=== PATIENT | male | born 1985 | race African-American/Black ===

== ENCOUNTER 2021-08-16 13:13 | Inpatient (IN) | payer OTHER, SELFPAY ==
[2021-08-16] MEDS ORDERED: Lorazepam 2 MG/ML VIAL ONE (13:37)
[2021-08-16] MEDS ORDERED: Acetaminophen 325 MG TAB PO PRN (20:30)
[2021-08-16] MEDS ORDERED: Ondansetron PF 4 MG/2 ML Vial IVP PRN ×2 (20:30→23:48)
[2021-08-16] MEDS ORDERED: Ondansetron ODT 4 MG TAB SL PRN (20:30)
[2021-08-16] MEDS ORDERED: Enoxaparin Sodium 40 MG/0.4 ML SYRINGE SC SCH (23:59)
[2021-08-17] MEDS ORDERED: Enoxaparin Sodium 120 MG/0.8 ML SYRINGE SC SCH (00:30)
[2021-08-17] MEDS: Acetaminophen 325 MG TAB PO PRN ×3 (00:47→20:34)
[2021-08-17] MEDS: Sodium Chloride 0.9% 1,000 ML IV SCH ×4 (00:54→20:35)
[2021-08-17 01:11] LABS: SARS-CoV-2 PCR by NAA Not Detected (NotDetected)
[2021-08-17 06:38] LABS: Legionella Urinary Ag Negative (Negative); Strep pneumo Urine Ag NEGATIVE (NEGATIVE)
[2021-08-17 07:57] LABS: Reticulocyte Count 1.3 % (0.5-1.5)
[2021-08-17 08:05] LABS: Hemoglobin 7.7 g/dL (14.0-18.0); Mean Corpuscular HGB CONC 34.5 g/dL (32.0-36.0); Mean Corpuscular Hemoglobin 31.8 pg (27.0-31.0); Mean Corpuscular Volume 92.1 fL (78.0-98.0); Mean Platelet Volume 7.9 fL (7.4-10.4); Platelet Count 138 thou/uL (130-400); RBC Distribution Width 22.7 % (11.5-14.5); Red Blood Cell (RBC) Count 2.41 mill/uL (4.70-6.10); White Blood Cell (WBC) Count 11.4 thou/uL (4.8-10.8)
[2021-08-17 08:48] LABS: Albumin 3.5 g/dL (3.5-5.0); Calcium 9.3 mg/dL (7.8-10.44); Chloride 104 mmol/L (98-107); Globulin 4.6 g/dL (2.4-3.5); Glucose 86 mg/dL (70-105); Potassium 3.8 mmol/L (3.5-5.1); Protein, Total 8.1 g/dL (6.0-8.3); Sodium 138 mmol/L (136-145)
[2021-08-17 08:59] LABS: Anion Gap 14 mmol/L (10-20); Carbon Dioxide 24 mmol/L (22-29)
[2021-08-17 09:00] LABS: ALT (SGPT) 73 U/L (8-55); AST (SGOT) 66 U/L (5-34); Alkaline Phosphatase 96 U/L (40-110); BUN (Urea Nitrogen) 11 mg/dL (8.9-20.6); Bilirubin, Total 2.7 mg/dL (0.2-1.2); Calc. Creatinine Clearance 223 mL/min (70-130); Iron 31 ug/dL (65-175); Iron Binding Capacity, Total 213 mcg/dL (261-462)
[2021-08-17] MEDS ORDERED: Enoxaparin Sodium 40 MG/0.4 ML SYRINGE SC SCH (09:00)
[2021-08-17 09:12] LABS: Band 4 % (5-11); Eosinophils 3 % (0-10); Hypochromia SLIGHT = 6-15 cells (100X) (0-5/hpf); Lymphocytes 13 % (21-51); MDiff Complete? YES; Monocytes 9 % (0-10); Neutrophil 71 % (42-75); Nucleated RBC 2 % (0); Platelet Morphology Comment Appears Adequate; Polychromasia MODERATE = 3-4 cells (100X) (0-2/hpf); Schistocytes SLIGHT = 2-5 cells (100X) (0-1/hpf); Target Cells MODERATE= 6-15 cells (100X) (0-1/hpf)
[2021-08-17] MEDS: cefTRIAXone\\ROCEPHIN 2 GM in Sodium Chloride 0.9% 100 ML IVPB SCH (11:47)
[2021-08-17] MEDS: Azithromycin 500 MG in Sodium Chloride 0.9% 250 ML 250 ML IVPB SCH (14:02)
[2021-08-17] MEDS: Enoxaparin Sodium 120 MG/0.8 ML SYRINGE SC SCH (14:09)
[2021-08-17] MEDS: Morphine 4 MG/ML VIAL SLOW IVP PRN ×2 (17:24→21:36)
[2021-08-17] MEDS: Gabapentin 100 MG CAP PO SCH (20:34)
[2021-08-18] MEDS: Enoxaparin Sodium 120 MG/0.8 ML SYRINGE SC SCH ×2 (01:16→13:14)
[2021-08-18] MEDS: Morphine 4 MG/ML VIAL SLOW IVP PRN ×4 (01:20→20:18)
[2021-08-18] MEDS: Acetaminophen 325 MG TAB PO PRN ×3 (04:56→22:45)
[2021-08-18] MEDS: Sodium Chloride 0.9% 1,000 ML IV SCH ×4 (05:03→21:46)
[2021-08-18 07:23] LABS: Hemoglobin 6.7 g/dL (14.0-18.0); Mean Corpuscular HGB CONC 32.1 g/dL (32.0-36.0); Mean Corpuscular Hemoglobin 30.2 pg (27.0-31.0); Mean Corpuscular Volume 94.1 fL (78.0-98.0); Mean Platelet Volume 10.7 fL (7.4-10.4); Platelet Count 117 thou/uL (130-400); RBC Distribution Width 19.8 % (11.5-14.5); White Blood Cell (WBC) Count 13.8 thou/uL (4.8-10.8)
[2021-08-18 07:29] LABS: Albumin 3.2 g/dL (3.5-5.0); Alkaline Phosphatase 100 U/L (40-110); Anion Gap 16 mmol/L (10-20); Bilirubin, Total 2.3 mg/dL (0.2-1.2); Calc. Creatinine Clearance 265 mL/min (70-130); Calcium 8.7 mg/dL (7.8-10.44); Carbon Dioxide 19 mmol/L (22-29); Chloride 104 mmol/L (98-107); Globulin 4.1 g/dL (2.4-3.5); Glucose 89 mg/dL (70-105); Potassium 3.6 mmol/L (3.5-5.1); Protein, Total 7.3 g/dL (6.0-8.3); Sodium 135 mmol/L (136-145)
[2021-08-18 07:36] LABS: BUN (Urea Nitrogen) 5 mg/dL (8.9-20.6)
[2021-08-18 07:37] LABS: AST (SGOT) 54 U/L (5-34)
[2021-08-18 07:38] LABS: ALT (SGPT) 52 U/L (8-55)
[2021-08-18] MEDS ORDERED: Enoxaparin Sodium 40 MG/0.4 ML SYRINGE SC SCH (09:00)
[2021-08-18 09:13] LABS: Band 6 % (5-11); Hypochromia SLIGHT = 6-15 cells (100X) (0-5/hpf); Lymphocytes 8 % (21-51); MDiff Complete? YES; Metamyelocyte 5 % (0-0); Monocytes 9 % (0-10); Myelocyte 4 % (0-0); Neutrophil 67 % (42-75); Nucleated RBC 8 % (0); Platelet Morphology Comment Appears Decreased; Polychromasia MODERATE = 3-4 cells (100X) (0-2/hpf); Target Cells MODERATE= 6-15 cells (100X) (0-1/hpf); Tear Drops SLIGHT = 2-5 cells (100X) (0-1/hpf)
[2021-08-18] MEDS: Sodium Chloride 0.65% Nasal 44 ML BOT EA NARE PRN ×2 (09:48→17:54)
[2021-08-18] MEDS: cefTRIAXone\\ROCEPHIN 2 GM in Sodium Chloride 0.9% 100 ML IVPB SCH (09:57)
[2021-08-18] MEDS ORDERED: Fentanyl 100 MCG/2 ML VIAL SLOW IVP SCH (14:15)
[2021-08-18] MEDS: Azithromycin 500 MG in Sodium Chloride 0.9% 250 ML 250 ML IVPB SCH (15:42)
[2021-08-18 18:26] LABS: Hemoglobin 8.3 g/dL (14.0-18.0)
[2021-08-18 19:55] LABS: SARS-CoV-2 IgG Spike Ab Interp Non-Reactive (NonReactive); SARS-CoV-2 IgG Spike Conc/Indx 5.5 AU/mL (0.00-50.0)
[2021-08-18] MEDS: Gabapentin 100 MG CAP PO SCH (20:18)
[2021-08-18] MEDS ORDERED: hydrALAZINE 20 MG/ML VIAL SLOW IVP PRN (22:07)
[2021-08-18] MEDS ORDERED: Metoprolol Tartrate 50 MG TAB PO SCH (22:30)
[2021-08-19] MEDS ORDERED: ALPRAZolam 0.25 MG TAB PO SCH (04:45)
[2021-08-19] MEDS: Sodium Chloride 0.9% 1,000 ML IV SCH ×7 (05:38→23:25)
[2021-08-19 06:36] LABS: Hemoglobin 7.6 g/dL (14.0-18.0); Mean Corpuscular HGB CONC 31.5 g/dL (32.0-36.0); Mean Corpuscular Hemoglobin 29.1 pg (27.0-31.0); Mean Corpuscular Volume 92.4 fL (78.0-98.0); Mean Platelet Volume 10.6 fL (7.4-10.4); Platelet Count 151 thou/uL (130-400); RBC Distribution Width 18.7 % (11.5-14.5)
[2021-08-19 06:53] LABS: Band 8 % (5-11); Eosinophils 1 % (0-10); Lymphocytes 19 % (21-51); MDiff Complete? YES; Monocytes 4 % (0-10); Myelocyte 5 % (0-0); Neutrophil 63 % (42-75); Nucleated RBC 8 % (0); Target Cells MODERATE= 6-15 cells (100X) (0-1/hpf); White Blood Cell (WBC) Count 20.5 thou/uL (4.8-10.8)
[2021-08-19 07:05] LABS: ALT (SGPT) 48 U/L (8-55); AST (SGOT) 63 U/L (5-34); Albumin 3.4 g/dL (3.5-5.0); Alkaline Phosphatase 142 U/L (40-110); Anion Gap 18 mmol/L (10-20); BUN (Urea Nitrogen) 8 mg/dL (8.9-20.6); Bilirubin, Total 1.9 mg/dL (0.2-1.2); Calc. Creatinine Clearance 258 mL/min (70-130); Calcium 9.3 mg/dL (7.8-10.44); Carbon Dioxide 21 mmol/L (22-29); Chloride 102 mmol/L (98-107); Globulin 4.9 g/dL (2.4-3.5); Glucose 93 mg/dL (70-105); Protein, Total 8.3 g/dL (6.0-8.3); Sodium 137 mmol/L (136-145)
[2021-08-19] MEDS: Acetaminophen 325 MG TAB PO PRN ×2 (08:55→23:42)
[2021-08-19] MEDS ORDERED: Furosemide 40 MG/4 ML VIAL ONE (09:14)
[2021-08-19] MEDS ORDERED: Furosemide 100 MG/10 ML VIAL SLOW IVP SCH (09:15)
[2021-08-19 09:51] LABS: Actual Bicarbonate (HCO3a) 21.8 mEq/L (22-28); Base Excess (BEa) -0.8 mEq/L (-2.0 to +3.0); Calcium, Ionized (arterial) 1.11 mmol/L (1.12-1.30); Carboxyhemoglobin (COHb) 0.5 gm% (0.0-3.0); Hemoglobin (Hb) 8.4 g/dL (14.0-18.0); O2 Tension (PaO2), arterial 60.5 mmHg (80.0-100.0); Potassium - ABG Lab 3.78 mmol/L (3.70-5.30); pH, Arterial 7.51 (7.35-7.45)
[2021-08-19] MEDS ORDERED: Metoprolol Tartrate 50 MG TAB PO SCH (11:30)
[2021-08-19] MEDS: cefTRIAXone\\ROCEPHIN 2 GM in Sodium Chloride 0.9% 100 ML IVPB SCH (11:49)
[2021-08-19 14:19] LABS: SARS-CoV-2 PCR by NAA Not Detected (NotDetected)
[2021-08-19] MEDS ORDERED: Azithromycin 500 MG in Sodium Chloride 0.9% 250 ML 250 ML IVPB SCH (15:00)
[2021-08-19] MEDS ORDERED: Morphine 4 MG/ML VIAL SLOW IVP PRN (16:21)
[2021-08-19] MEDS ORDERED: Sodium Chloride 0.9% 1,000 ML IV SCH (16:30)
[2021-08-19 16:50] LABS: Reticulocyte Count 1.2 % (0.5-1.5)
[2021-08-19] MEDS: Morphine 4 MG/ML VIAL SLOW IVP PRN (20:04)
[2021-08-19] MEDS: Gabapentin 100 MG CAP PO SCH (20:05)
[2021-08-19] MEDS: Metoprolol Tartrate 50 MG TAB PO SCH (20:06)
[2021-08-19] MEDS: ALPRAZolam 0.25 MG TAB PO PRN (21:57)
[2021-08-19] MEDS ORDERED: Cyclobenzaprine 10 MG TAB PO SCH (23:59)
[2021-08-20] MEDS: Sodium Chloride 0.9% 1,000 ML IV SCH ×4 (00:01→14:44)
[2021-08-20 03:59] LABS: ALT (SGPT) 37 U/L (8-55); AST (SGOT) 59 U/L (5-34); Albumin 3.3 g/dL (3.5-5.0); Alkaline Phosphatase 155 U/L (40-110); Anion Gap 14 mmol/L (10-20); BUN (Urea Nitrogen) 10 mg/dL (8.9-20.6); Bilirubin, Total 1.9 mg/dL (0.2-1.2); Calc. Creatinine Clearance 251 mL/min (70-130); Calcium 9.2 mg/dL (7.8-10.44); Carbon Dioxide 23 mmol/L (22-29); Chloride 103 mmol/L (98-107); Globulin 4.9 g/dL (2.4-3.5); Glucose 90 mg/dL (70-105); Magnesium 2.3 mg/dL (1.6-2.6); Potassium 3.8 mmol/L (3.5-5.1); Protein, Total 8.2 g/dL (6.0-8.3); Reticulocyte Count 1.2 % (0.5-1.5); Sodium 136 mmol/L (136-145)
[2021-08-20 04:12] LABS: CRP (Inflammatory) 49.83 mg/dL (= or < 0.5)
[2021-08-20 04:42] LABS: Anisocytosis MODERATE=16-30 cells (100X) (0-5/hpf); Band 9 % (5-11); Hemoglobin 7.8 g/dL (14.0-18.0); Lymphocytes 20 % (21-51); MDiff Complete? YES; Mean Corpuscular HGB CONC 33.6 g/dL (32.0-36.0); Mean Corpuscular Hemoglobin 30.5 pg (27.0-31.0); Mean Corpuscular Volume 90.9 fL (78.0-98.0); Monocytes 3 % (0-10); Myelocyte 3 % (0-0); Neutrophil 64 % (42-75); Nucleated RBC 19 % (0); Platelet Count 186 thou/uL (130-400); Reactive Lymphocytes 1 % (0-10); Red Blood Cell (RBC) Count 2.54 mill/uL (4.70-6.10); White Blood Cell (WBC) Count 21.2 thou/uL (4.8-10.8)
[2021-08-20] MEDS: Metoprolol Tartrate 50 MG TAB PO SCH ×2 (08:10→20:10)
[2021-08-20] MEDS: ALPRAZolam 0.25 MG TAB PO PRN (08:10)
[2021-08-20] MEDS: Morphine 4 MG/ML VIAL SLOW IVP PRN (08:10)
[2021-08-20] MEDS: Acetaminophen 325 MG TAB PO PRN ×2 (11:11→22:10)
[2021-08-20] MEDS: cefTRIAXone\\ROCEPHIN 2 GM in Sodium Chloride 0.9% 100 ML IVPB SCH (11:11)
[2021-08-20] MEDS ORDERED: Propofol 1,000 MG/100 ML VIAL IV ONE (12:25)
[2021-08-20] MEDS ORDERED: Midazolam HCl 2 mg/2 ml Vial ONE ×2 (12:25)
[2021-08-20] MEDS ORDERED: Rocuronium Bromide 10 MG/ML (10ML VIAL) ONE (12:26)
[2021-08-20] MEDS ORDERED: Lorazepam 2 MG/ML VIAL ONE (12:59)
[2021-08-20] MEDS ORDERED: Morphine 2 MG/ML VIAL SLOW IVP PRN (13:00)
[2021-08-20] MEDS ORDERED: DISCONTINUE PREVIOUS NARCOTIC PAIN MEDICATIONS AND BENZODIAZEPINES FS SCH (13:00)
[2021-08-20] MEDS ORDERED: Fentanyl BOLUS 250 ML IVPB PRN (13:00)
[2021-08-20] MEDS ORDERED: Propofol BOLUS 1,000 MG/100 ML VIAL IV PRN (13:00)
[2021-08-20] MEDS: Lorazepam 2 MG/ML VIAL SLOW IVP PRN (13:03)
[2021-08-20] MEDS: fentaNYL Citrate/PF 2,000 MCG in Sodium Chloride 0.9% 60 ML IV SCH (13:14)
[2021-08-20] MEDS: Vancomycin 1.5 GRAM/300 ML BAG 1.5 GM in Premix Bag 1 BAG IVPB SCH ×2 (13:19→20:09)
[2021-08-20 13:20] LABS: Actual Bicarbonate (HCO3a) 22.8 mEq/L (22-28); Base Excess (BEa) -1.3 mEq/L (-2.0 to +3.0); CO2 Tension 35.2 mmHg (35.0-45.0); Calcium, Ionized (arterial) 1.08 mmol/L (1.12-1.30); Carboxyhemoglobin (COHb) 0.3 gm% (0.0-3.0); Hemoglobin (Hb) 6.4 g/dL (14.0-18.0); O2 Tension (PaO2), arterial 89.1 mmHg (80.0-100.0); Potassium - ABG Lab 3.96 mmol/L (3.70-5.30); pH, Arterial 7.43 (7.35-7.45)
[2021-08-20] MEDS ORDERED: MEROPENEM 1 GM/50 ML 1 GM in Premix Bag 1 BAG IVPB SCH ×2 (14:00→22:00)
[2021-08-20] MEDS ORDERED: Meropenem 1 GM in Sodium Chloride 0.9% 100 ML IVPB SCH (14:00)
[2021-08-20 14:26] LABS: Puncture Site RRA
[2021-08-20] MEDS: Propofol 1,000 MG/100 ML VIAL IV PRN ×2 (16:01→20:17)
[2021-08-20] MEDS: hydrALAZINE 20 MG/ML VIAL SLOW IVP PRN (19:33)
[2021-08-20] MEDS: Gabapentin 100 MG CAP PO SCH (20:09)
[2021-08-20] MEDS ORDERED: Vancomycin 1 GM in Premix Bag 1 BAG IVPB SCH (21:00)
[2021-08-20] MEDS: Meropenem 1 GM in Sodium Chloride 0.9% 100 ML IVPB SCH (23:00)
[2021-08-21] MEDS: fentaNYL Citrate/PF 2,000 MCG in Sodium Chloride 0.9% 60 ML IV SCH ×2 (02:11→22:01)
[2021-08-21] MEDS: Acetaminophen 325 MG TAB PO PRN ×3 (03:58→20:20)
[2021-08-21] MEDS: Propofol 1,000 MG/100 ML VIAL IV PRN ×4 (03:59→20:15)
[2021-08-21] MEDS ORDERED: Ibuprofen 100 MG/5 ML UDCUP PER TUBE SCH (04:00)
[2021-08-21] MEDS: Vancomycin 1.5 GRAM/300 ML BAG 1.5 GM in Premix Bag 1 BAG IVPB SCH ×2 (04:54→13:13)
[2021-08-21 05:05] LABS: Anion Gap 13 mmol/L (10-20); BUN (Urea Nitrogen) 21 mg/dL (8.9-20.6); Calc. Creatinine Clearance 184 mL/min (70-130); Calcium 8.5 mg/dL (7.8-10.44); Carbon Dioxide 22 mmol/L (22-29); Chloride 109 mmol/L (98-107); Glucose 81 mg/dL (70-105); Potassium 4.2 mmol/L (3.5-5.1); Sodium 140 mmol/L (136-145)
[2021-08-21 05:30] LABS: Anisocytosis MODERATE=16-30 cells (100X) (0-5/hpf); Band 10 % (5-11); Eosinophils 1 % (0-10); Hemoglobin 7.8 g/dL (14.0-18.0); Large Platelets SLIGHT; Lymphocytes 21 % (21-51); MDiff Complete? YES; Mean Corpuscular HGB CONC 32.7 g/dL (32.0-36.0); Mean Corpuscular Hemoglobin 28.9 pg (27.0-31.0); Mean Corpuscular Volume 88.3 fL (78.0-98.0); Mean Platelet Volume 12.2 fL (7.4-10.4); Metamyelocyte 3 % (0-0); Microcytosis SLIGHT = 6-15 cells (100X) (0-5/hpf); Monocytes 3 % (0-10); Myelocyte 10 % (0-0); Neutrophil 52 % (42-75); Nucleated RBC 39 % (0); Platelet Count 66 thou/uL (130-400); Platelet Morphology Comment Appears Decreased; Polychromasia SLIGHT = 2-3 cells (100X) (0-2/hpf); RBC Distribution Width 18.8 % (11.5-14.5); Schistocytes SLIGHT = 2-5 cells (100X) (0-1/hpf); Target Cells SLIGHT = 2-5 cells (100X) (0-1/hpf); Toxic Granulation SLIGHT; White Blood Cell (WBC) Count 19.2 thou/uL (4.8-10.8)
[2021-08-21] MEDS: Sodium Chloride 0.9% 1,000 ML IV SCH ×4 (05:44→19:15)
[2021-08-21] MEDS: Meropenem 1 GM in Sodium Chloride 0.9% 100 ML IVPB SCH ×3 (06:44→22:02)
[2021-08-21 07:53] LABS: Base Excess (BEa) -1.7 mEq/L (-2.0 to +3.0); CO2 Tension 39.3 mmHg (35.0-45.0); Calcium, Ionized (arterial) 1.11 mmol/L (1.12-1.30); O2 Tension (PaO2), arterial 95.5 mmHg (80.0-100.0); Potassium - ABG Lab 4.31 mmol/L (3.70-5.30); pH, Arterial 7.39 (7.35-7.45)
[2021-08-21 08:23] LABS: Puncture Site RRA
[2021-08-21 08:24] LABS: ALV-art Gradient 140.575 mmHg (0-20)
[2021-08-21] MEDS: Metoprolol Tartrate 50 MG TAB PO SCH ×2 (09:18→20:20)
[2021-08-21] MEDS: Famotidine/PF 20 mg/2ml Vial SLOW IVP SCH (09:18)
[2021-08-21 11:40] LABS: Vancomycin, Trough 30.6 ug/mL
[2021-08-21 12:35] LABS: Hemoglobin 7.5 g/dL (14.0-18.0); Mean Corpuscular HGB CONC 34.5 g/dL (32.0-36.0); Mean Corpuscular Hemoglobin 30.3 pg (27.0-31.0); Mean Platelet Volume 14.1 fL (7.4-10.4); Platelet Count 62 thou/uL (130-400); RBC Distribution Width 19.1 % (11.5-14.5); Red Blood Cell (RBC) Count 2.46 mill/uL (4.70-6.10)
[2021-08-21 13:17] LABS: Anisocytosis SLIGHT = 6-15 cells (100X) (0-5/hpf); Band 2 % (5-11); Eosinophils 1 % (0-10); Lymphocytes 12 % (21-51); MDiff Complete? YES; Metamyelocyte 5 % (0-0); Monocytes 7 % (0-10); Myelocyte 8 % (0-0); Neutrophil 62 % (42-75); Nucleated RBC 46 % (0); Platelet Morphology Comment Appears Decreased; Polychromasia SLIGHT = 2-3 cells (100X) (0-2/hpf); Reactive Lymphocytes 3 % (0-10); Target Cells SLIGHT = 2-5 cells (100X) (0-1/hpf); Toxic Granulation SLIGHT
[2021-08-21 13:19] LABS: White Blood Cell (WBC) Count 19.5 thou/uL (4.8-10.8)
[2021-08-21] MEDS: Gabapentin 100 MG CAP PO SCH (20:20)
[2021-08-21 23:36] LABS: Vancomycin, Random 9.7 ug/mL (See Comment)
[2021-08-22] MEDS: Acetaminophen 325 MG TAB PO PRN ×4 (00:25→16:45)
[2021-08-22] MEDS ORDERED: Vancomycin HCl 1.5 GM in Sodium Chloride 0.9% 250 ML 300 ML IVPB SCH (00:45)
[2021-08-22] MEDS ORDERED: Vancomycin 1.5 GRAM/300 ML BAG 1.5 GM in Premix Bag 1 BAG IVPB SCH (01:00)
[2021-08-22] MEDS: Sodium Chloride 0.9% 1,000 ML IV SCH ×4 (03:01→20:36)
[2021-08-22] MEDS: Propofol 1,000 MG/100 ML VIAL IV PRN ×7 (03:50→23:17)
[2021-08-22 04:27] LABS: Reticulocyte Count 1.4 % (0.5-1.5)
[2021-08-22 04:30] LABS: ALT (SGPT) 1627 U/L (8-55); Albumin 2.6 g/dL (3.5-5.0); Alkaline Phosphatase 176 U/L (40-110); Anion Gap 13 mmol/L (10-20); BUN (Urea Nitrogen) 27 mg/dL (8.9-20.6); Bilirubin, Total 4.1 mg/dL (0.2-1.2); Calc. Creatinine Clearance 173 mL/min (70-130); Calcium 8.1 mg/dL (7.8-10.44); Carbon Dioxide 22 mmol/L (22-29); Chloride 112 mmol/L (98-107); Globulin 4.1 g/dL (2.4-3.5); Glucose 97 mg/dL (70-105); Potassium 4.4 mmol/L (3.5-5.1); Protein, Total 6.7 g/dL (6.0-8.3); Sodium 143 mmol/L (136-145)
[2021-08-22 04:31] LABS: ALT (SGPT) 1621 U/L (8-55); Albumin 2.6 g/dL (3.5-5.0); Alkaline Phosphatase 177 U/L (40-110); Bilirubin, Total 4.1 mg/dL (0.2-1.2); Protein, Total 6.7 g/dL (6.0-8.3)
[2021-08-22 04:40] LABS: AST (SGOT) Greater than 3500 U/L (5-34)
[2021-08-22 04:41] LABS: AST (SGOT) Greater than 3500 U/L (5-34)
[2021-08-22] MEDS: Meropenem 1 GM in Sodium Chloride 0.9% 100 ML IVPB SCH ×3 (05:13→21:03)
[2021-08-22 06:01] LABS: Anisocytosis SLIGHT = 6-15 cells (100X) (0-5/hpf); Band 12 % (5-11); Basophilic Stippling SLIGHT = 1-2 cells (100X) (None Seen); Eosinophils 3 % (0-10); Hemoglobin 7.4 g/dL (14.0-18.0); Lymphocytes 18 % (21-51); MDiff Complete? YES; Mean Corpuscular HGB CONC 31.4 g/dL (32.0-36.0); Mean Corpuscular Volume 89.1 fL (78.0-98.0); Mean Platelet Volume 8.3 fL (7.4-10.4); Monocytes 3 % (0-10); Myelocyte 5 % (0-0); Neutrophil 59 % (42-75); Nucleated RBC 29 % (0); Platelet Count 89 thou/uL (130-400); Platelet Morphology Comment Appears Decreased; Polychromasia SLIGHT = 2-3 cells (100X) (0-2/hpf); RBC Distribution Width 19.6 % (11.5-14.5); Red Blood Cell (RBC) Count 2.64 mill/uL (4.70-6.10); Target Cells SLIGHT = 2-5 cells (100X) (0-1/hpf); White Blood Cell (WBC) Count 27.6 thou/uL (4.8-10.8)
[2021-08-22 07:22] LABS: Actual Bicarbonate (HCO3a) 22.7 mEq/L (22-28); Base Excess (BEa) -1.5 mEq/L (-2.0 to +3.0); CO2 Tension 36.1 mmHg (35.0-45.0); Calcium, Ionized (arterial) 1.11 mmol/L (1.12-1.30); Hemoglobin (Hb) 8.5 g/dL (14.0-18.0); O2 Tension (PaO2), arterial 73.6 mmHg (80.0-100.0); Potassium - ABG Lab 4.26 mmol/L (3.70-5.30); pH, Arterial 7.42 (7.35-7.45)
[2021-08-22 07:23] LABS: ALV-art Gradient 166.475 mmHg (0-20); Puncture Site RR
[2021-08-22] MEDS: hydrALAZINE 20 MG/ML VIAL SLOW IVP PRN (07:48)
[2021-08-22] MEDS: Lorazepam 2 MG/ML VIAL SLOW IVP PRN ×3 (08:22→20:34)
[2021-08-22] MEDS: Labetalol HCl 100 MG/20 ML VIAL SLOW IVP PRN ×2 (08:23→16:45)
[2021-08-22] MEDS: Famotidine/PF 20 mg/2ml Vial SLOW IVP SCH (08:35)
[2021-08-22] MEDS: Metoprolol Tartrate 50 MG TAB PO SCH ×2 (08:35→20:24)
[2021-08-22] MEDS: Vancomycin 1.5 GRAM/300 ML BAG 1.5 GM in Premix Bag 1 BAG IVPB SCH (14:47)
[2021-08-22] MEDS: fentaNYL Citrate/PF 2,000 MCG in Sodium Chloride 0.9% 60 ML IV SCH (16:09)
[2021-08-22] MEDS: Vecuronium 10 MG VIAL IVP PRN (17:51)
[2021-08-22] MEDS: Gabapentin 100 MG CAP PO SCH (20:23)
[2021-08-23] MEDS: Lorazepam 2 MG/ML VIAL SLOW IVP PRN ×2 (00:41→00:45)
[2021-08-23] MEDS: Labetalol HCl 100 MG/20 ML VIAL SLOW IVP PRN (00:45)
[2021-08-23] MEDS: Vancomycin 1.5 GRAM/300 ML BAG 1.5 GM in Premix Bag 1 BAG IVPB SCH ×2 (00:45→14:38)
[2021-08-23] MEDS: Sodium Chloride 0.9% 1,000 ML IV SCH ×3 (02:11→20:36)
[2021-08-23] MEDS: fentaNYL Citrate/PF 2,000 MCG in Sodium Chloride 0.9% 60 ML IV SCH ×2 (02:11→12:08)
[2021-08-23] MEDS: Propofol 1,000 MG/100 ML VIAL IV PRN ×7 (02:13→23:07)
[2021-08-23 04:56] LABS: Ref Lab Test Ordered ADAMTS13 AB; Reference Lab Name LABCORP
[2021-08-23 05:19] LABS: Complement-C4 5.6 mg/dL (15-53)
[2021-08-23 05:20] LABS: ALT (SGPT) 1108 U/L (8-55); ALT (SGPT) 1125 U/L (8-55); AST (SGOT) 1962 U/L (5-34); AST (SGOT) 1992 U/L (5-34); Albumin 2.3 g/dL (3.5-5.0); Albumin 2.4 g/dL (3.5-5.0); Alkaline Phosphatase 173 U/L (40-110); Alkaline Phosphatase 175 U/L (40-110); Anion Gap 10 mmol/L (10-20); BUN (Urea Nitrogen) 24 mg/dL (8.9-20.6); Bilirubin, Direct 3.7 mg/dL (0.1-0.3); Bilirubin, Total 5.1 mg/dL (0.2-1.2); Calc. Creatinine Clearance 216 mL/min (70-130); Calcium 8.3 mg/dL (7.8-10.44); Carbon Dioxide 25 mmol/L (22-29); Chloride 116 mmol/L (98-107); Globulin 4.3 g/dL (2.4-3.5); Glucose 97 mg/dL (70-105); Potassium 4.2 mmol/L (3.5-5.1); Protein, Total 6.6 g/dL (6.0-8.3); Protein, Total 6.7 g/dL (6.0-8.3); Sodium 147 mmol/L (136-145)
[2021-08-23 05:35] LABS: Anisocytosis MODERATE=16-30 cells (100X) (0-5/hpf); Band 18 % (5-11); Eosinophils 2 % (0-10); Hemoglobin 6.6 g/dL (14.0-18.0); Large Platelets SLIGHT; Lymphocytes 11 % (21-51); MDiff Complete? YES; Mean Corpuscular HGB CONC 30.3 g/dL (32.0-36.0); Mean Corpuscular Hemoglobin 26.8 pg (27.0-31.0); Mean Corpuscular Volume 88.4 fL (78.0-98.0); Mean Platelet Volume 10.4 fL (7.4-10.4); Metamyelocyte 5 % (0-0); Monocytes 1 % (0-10); Myelocyte 12 % (0-0); Neutrophil 51 % (42-75); Nucleated RBC 64 % (0); Platelet Count 81 thou/uL (130-400); Platelet Morphology Comment Appears Decreased; Polychromasia SLIGHT = 2-3 cells (100X) (0-2/hpf); RBC Distribution Width 21.2 % (11.5-14.5); Red Blood Cell (RBC) Count 2.47 mill/uL (4.70-6.10); Schistocytes SLIGHT = 2-5 cells (100X) (0-1/hpf); Target Cells SLIGHT = 2-5 cells (100X) (0-1/hpf)
[2021-08-23 05:40] LABS: HBCM Index 0.08 S/CO (0-0.79); HBSAg Index 0.22 S/CO (0-0.99); Hep A IgM AB Non-Reactive (NonReactive); Hep A IgM S/CO 0.09 S/CO (0-0.79); Hep B Surf Ag Non-Reactive S/CO (NonReactive); Hep C IgG Ab Non-Reactive (NonReactive); Hep C Index 0.17 S/CO (0-0.79); Hepatitis B Core IgM Abs Non-Reactive (NonReactive)
[2021-08-23] MEDS: Meropenem 1 GM in Sodium Chloride 0.9% 100 ML IVPB SCH ×3 (06:00→21:53)
[2021-08-23 07:06] LABS: Actual Bicarbonate (HCO3a) 23.7 mEq/L (22-28); Base Excess (BEa) -1.7 mEq/L (-2.0 to +3.0); CO2 Tension 43.3 mmHg (35.0-45.0); Calcium, Ionized (arterial) 1.17 mmol/L (1.12-1.30); Carboxyhemoglobin (COHb) 3.4 gm% (0.0-3.0); Hemoglobin (Hb) 8.1 g/dL (14.0-18.0); Potassium - ABG Lab 4.22 mmol/L (3.70-5.30); pH, Arterial 7.36 (7.35-7.45)
[2021-08-23 07:10] LABS: ALV-art Gradient 173.075 mmHg (0-20); Puncture Site RRA
[2021-08-23] MEDS ORDERED: Ibuprofen 600 MG TAB PO PRN (08:50)
[2021-08-23] MEDS: Metoprolol Tartrate 50 MG TAB PO SCH ×2 (09:21→20:07)
[2021-08-23] MEDS: Famotidine/PF 20 mg/2ml Vial SLOW IVP SCH ×2 (09:21→20:07)
[2021-08-23 10:18] LABS: INR-International Normal Ratio 1.3; Prothrombin Time 15.9 sec (12.0-14.7)
[2021-08-23] MEDS: Vecuronium 10 MG VIAL IVP PRN (10:45)
[2021-08-23 12:35] LABS: Vancomycin, Trough 11.4 ug/mL
[2021-08-23 12:46] LABS: BF Color Pink; Body Fluid Source Bronchioalveol Lavag; Clarity Hazy (Clear); Tube # EDTA
[2021-08-23 12:47] LABS: BF RBC Count - Manual 1073 /cu.mm; BF WBC/Nonhematics Ct.-Manual 1643 /cu.mm
[2021-08-23 12:50] LABS: BF Segmented Neutrophils 76 %; Cell Count Non Hematic 19 %; Eosinophils 2 %; Lymphocytes 3 %
[2021-08-23] MEDS: VANCOMYCIN 1.75 GM/350 ML BAG 1.75 GM in Premix Bag 1 BAG IVPB SCH (14:00)
[2021-08-23 15:13] LABS: Hemoglobin F 5.1 % (0.0-2.0); Hemoglobin S 57.5 % (0.0)
[2021-08-23] MEDS: Gabapentin 100 MG CAP PO SCH (20:07)
[2021-08-24] MEDS: fentaNYL Citrate/PF 2,000 MCG in Sodium Chloride 0.9% 60 ML IV SCH ×2 (00:05→17:41)
[2021-08-24] MEDS: VANCOMYCIN 1.75 GM/350 ML BAG 1.75 GM in Premix Bag 1 BAG IVPB SCH ×2 (02:15→15:39)
[2021-08-24] MEDS: Propofol 1,000 MG/100 ML VIAL IV PRN ×5 (02:17→21:23)
[2021-08-24] MEDS: hydrALAZINE 20 MG/ML VIAL SLOW IVP PRN (03:08)
[2021-08-24] MEDS: Labetalol HCl 100 MG/20 ML VIAL SLOW IVP PRN (03:42)
[2021-08-24] MEDS: Sodium Chloride 0.9% 1,000 ML IV SCH (04:06)
[2021-08-24 04:47] LABS: Reticulocyte Count 4.6 % (0.5-1.5)
[2021-08-24 04:52] LABS: ALT (SGPT) 708 U/L (8-55); AST (SGOT) 920 U/L (5-34); Albumin 2.3 g/dL (3.5-5.0); Alkaline Phosphatase 169 U/L (40-110); Bilirubin, Direct 3.4 mg/dL (0.1-0.3); Bilirubin, Total 4.7 mg/dL (0.2-1.2); Protein, Total 6.8 g/dL (6.0-8.3)
[2021-08-24 04:56] LABS: ALT (SGPT) 713 U/L (8-55); AST (SGOT) 923 U/L (5-34); Albumin 2.3 g/dL (3.5-5.0); Alkaline Phosphatase 168 U/L (40-110); Anion Gap 13 mmol/L (10-20); BUN (Urea Nitrogen) 18 mg/dL (8.9-20.6); Bilirubin, Total 4.7 mg/dL (0.2-1.2); Calc. Creatinine Clearance 232 mL/min (70-130); Calcium 8.7 mg/dL (7.8-10.44); Carbon Dioxide 24 mmol/L (22-29); Chloride 119 mmol/L (98-107); Globulin 4.5 g/dL (2.4-3.5); Glucose 96 mg/dL (70-105); Potassium 4.5 mmol/L (3.5-5.1); Protein, Total 6.8 g/dL (6.0-8.3); Sodium 151 mmol/L (136-145)
[2021-08-24 05:21] LABS: HIV (1/2) Antibody/Antigen Non-Reactive (NonReactive); HIV 1/2 INDEX 0.16 S/CO (<1.00)
[2021-08-24] MEDS: Meropenem 1 GM in Sodium Chloride 0.9% 100 ML IVPB SCH ×3 (05:58→21:21)
[2021-08-24 06:03] LABS: Ferritin 26163.38 ng/mL (22-322)
[2021-08-24 06:14] LABS: Hemoglobin 7.4 g/dL (14.0-18.0); Mean Corpuscular HGB CONC 32.5 g/dL (32.0-36.0); Mean Corpuscular Hemoglobin 28.6 pg (27.0-31.0); Mean Corpuscular Volume 88.2 fL (78.0-98.0); Mean Platelet Volume 9.4 fL (7.4-10.4); Platelet Count 110 thou/uL (130-400); Red Blood Cell (RBC) Count 2.58 mill/uL (4.70-6.10)
[2021-08-24 07:13] LABS: White Blood Cell (WBC) Count 17.7 thou/uL (4.8-10.8)
[2021-08-24 07:56] LABS: Actual Bicarbonate (HCO3a) 24.8 mEq/L (22-28); Base Excess (BEa) 0.2 mEq/L (-2.0 to +3.0); CO2 Tension 39.5 mmHg (35.0-45.0); Carboxyhemoglobin (COHb) 2.9 gm% (0.0-3.0); Hemoglobin (Hb) 7.7 g/dL (14.0-18.0); Potassium - ABG Lab 4.41 mmol/L (3.70-5.30); pH, Arterial 7.42 (7.35-7.45)
[2021-08-24 07:57] LABS: ALV-art Gradient 238.125 mmHg (0-20); Puncture Site RRA
[2021-08-24] MEDS: Famotidine/PF 20 mg/2ml Vial SLOW IVP SCH ×2 (08:28→21:20)
[2021-08-24] MEDS: Metoprolol Tartrate 50 MG TAB PO SCH ×2 (08:29→21:20)
[2021-08-24 10:43] LABS: Reference Lab Name LABCORP
[2021-08-24 10:44] LABS: Ref Lab Test Ordered NK ACTIVITY
[2021-08-24 13:28] LABS: Anisocytosis MODERATE=16-30 cells (100X) (0-5/hpf); Band 15 % (5-11); Eosinophils 7 % (0-10); Large Platelets SLIGHT; Lymphocytes 7 % (21-51); Metamyelocyte 4 % (0-0); Monocytes 5 % (0-10); Myelocyte 5 % (0-0); Neutrophil 57 % (42-75); Nucleated RBC 181 % (0); Ovalocytes SLIGHT = 2-5 cells (100X) (0-1/hpf); Platelet Morphology Comment Appears Decreased; Poikilocytosis SLIGHT = 6-15 cells (100X) (0-5/hpf); Polychromasia MODERATE = 3-4 cells (100X) (0-2/hpf); Schistocytes SLIGHT = 2-5 cells (100X) (0-1/hpf); Spherocytes SLIGHT = 1-5 cells (100X) (None Seen); Target Cells SLIGHT = 2-5 cells (100X) (0-1/hpf)
[2021-08-24 13:30] LABS: MDiff Complete? YES
[2021-08-24 17:31] LABS: SARS-CoV-2 PCR by NAA Not Detected (NotDetected)
[2021-08-24] MEDS: Gabapentin 100 MG CAP PO SCH (21:20)
[2021-08-25] MEDS: VANCOMYCIN 1.75 GM/350 ML BAG 1.75 GM in Premix Bag 1 BAG IVPB SCH ×2 (01:59→14:12)
[2021-08-25] MEDS: Propofol 1,000 MG/100 ML VIAL IV PRN ×5 (02:02→22:06)
[2021-08-25 04:34] LABS: ALT (SGPT) 427 U/L (8-55); AST (SGOT) 422 U/L (5-34); Albumin 2.2 g/dL (3.5-5.0); Alkaline Phosphatase 150 U/L (40-110); Anion Gap 15 mmol/L (10-20); BUN (Urea Nitrogen) 20 mg/dL (8.9-20.6); Bilirubin, Total 3.8 mg/dL (0.2-1.2); Calc. Creatinine Clearance 235 mL/min (70-130); Calcium 8.9 mg/dL (7.8-10.44); Carbon Dioxide 23 mmol/L (22-29); Chloride 117 mmol/L (98-107); Globulin 4.5 g/dL (2.4-3.5); Glucose 102 mg/dL (70-105); Potassium 4.3 mmol/L (3.5-5.1); Protein, Total 6.7 g/dL (6.0-8.3); Sodium 151 mmol/L (136-145)
[2021-08-25 04:38] LABS: Band 18 % (5-11); Eosinophils 1 % (0-10); Hypochromia SLIGHT = 6-15 cells (100X) (0-5/hpf); Lymphocytes 14 % (21-51); MDiff Complete? YES; Mean Corpuscular HGB CONC 33.9 g/dL (32.0-36.0); Mean Corpuscular Hemoglobin 30.4 pg (27.0-31.0); Mean Corpuscular Volume 89.5 fL (78.0-98.0); Metamyelocyte 1 % (0-0); Monocytes 16 % (0-10); Neutrophil 45 % (42-75); Nucleated RBC 149 % (0); Platelet Count 118 thou/uL (130-400); Platelet Morphology Comment Appears Decreased; Polychromasia SLIGHT = 2-3 cells (100X) (0-2/hpf); RBC Distribution Width 24.5 % (11.5-14.5); Red Blood Cell (RBC) Count 2.32 mill/uL (4.70-6.10); Target Cells SLIGHT = 2-5 cells (100X) (0-1/hpf); White Blood Cell (WBC) Count 11.7 thou/uL (4.8-10.8)
[2021-08-25] MEDS: Meropenem 1 GM in Sodium Chloride 0.9% 100 ML IVPB SCH ×3 (05:57→21:28)
[2021-08-25] MEDS: fentaNYL Citrate/PF 2,000 MCG in Sodium Chloride 0.9% 60 ML IV SCH (05:58)
[2021-08-25 07:25] LABS: Actual Bicarbonate (HCO3a) 26.6 mEq/L (22-28); Base Excess (BEa) 1.5 mEq/L (-2.0 to +3.0); CO2 Tension 44.4 mmHg (35.0-45.0); Calcium, Ionized (arterial) 1.22 mmol/L (1.12-1.30); Carboxyhemoglobin (COHb) 3.3 gm% (0.0-3.0); O2 Tension (PaO2), arterial 81.3 mmHg (80.0-100.0); Potassium - ABG Lab 4.33 mmol/L (3.70-5.30)
[2021-08-25 07:29] LABS: Puncture Site LRA
[2021-08-25] MEDS ORDERED: Dextrose 5% in Water 1,000 ML IV SCH (08:00)
[2021-08-25] MEDS: Metoprolol Tartrate 50 MG TAB PO SCH ×2 (09:06→21:46)
[2021-08-25] MEDS: Enoxaparin Sodium 40 MG/0.4 ML SYRINGE SC SCH (09:06)
[2021-08-25] MEDS: Famotidine/PF 20 mg/2ml Vial SLOW IVP SCH ×2 (09:07→21:39)
[2021-08-25] MEDS: methylPREDNISolone Sod Succ 40 MG VIAL IVP SCH ×2 (14:13→18:51)
[2021-08-25] MEDS: Lorazepam 2 MG/ML VIAL SLOW IVP PRN (14:38)
[2021-08-25] MEDS: Labetalol HCl 100 MG/20 ML VIAL SLOW IVP PRN (21:20)
[2021-08-25] MEDS: Gabapentin 100 MG CAP PO SCH (21:40)
[2021-08-26] MEDS: methylPREDNISolone Sod Succ 40 MG VIAL IVP SCH ×4 (00:15→21:01)
[2021-08-26] MEDS: Propofol 1,000 MG/100 ML VIAL IV PRN ×4 (00:16→08:22)
[2021-08-26] MEDS: VANCOMYCIN 1.75 GM/350 ML BAG 1.75 GM in Premix Bag 1 BAG IVPB SCH (01:20)
[2021-08-26] MEDS: Morphine 4 MG/ML VIAL SLOW IVP PRN (04:20)
[2021-08-26 04:52] LABS: ALT (SGPT) 326 U/L (8-55); AST (SGOT) 271 U/L (5-34); Albumin 2.6 g/dL (3.5-5.0); Alkaline Phosphatase 152 U/L (40-110); Anion Gap 14 mmol/L (10-20); BUN (Urea Nitrogen) 21 mg/dL (8.9-20.6); Bilirubin, Total 3.2 mg/dL (0.2-1.2); Calc. Creatinine Clearance 226 mL/min (70-130); Calcium 9.2 mg/dL (7.8-10.44); Carbon Dioxide 25 mmol/L (22-29); Chloride 115 mmol/L (98-107); Globulin 5.2 g/dL (2.4-3.5); Glucose 143 mg/dL (70-105); Potassium 4.8 mmol/L (3.5-5.1); Protein, Total 7.8 g/dL (6.0-8.3); Sodium 149 mmol/L (136-145)
[2021-08-26] MEDS: fentaNYL Citrate/PF 2,000 MCG in Sodium Chloride 0.9% 60 ML IV SCH (05:00)
[2021-08-26] MEDS: Meropenem 1 GM in Sodium Chloride 0.9% 100 ML IVPB SCH ×3 (05:02→21:02)
[2021-08-26 05:47] LABS: Anisocytosis MARKED = >30 cells (100X) (0-5/hpf); Band 17 % (5-11); Eosinophils 1 % (0-10); Lymphocytes 4 % (21-51); MDiff Complete? YES; Mean Corpuscular HGB CONC 32.9 g/dL (32.0-36.0); Mean Corpuscular Hemoglobin 29.1 pg (27.0-31.0); Mean Corpuscular Volume 88.5 fL (78.0-98.0); Mean Platelet Volume 9.1 fL (7.4-10.4); Monocytes 1 % (0-10); Myelocyte 9 % (0-0); Neutrophil 68 % (42-75); Nucleated RBC 200 % (0); Platelet Count 84 thou/uL (130-400); Platelet Morphology Comment Appears Decreased; Polychromasia MODERATE = 3-4 cells (100X) (0-2/hpf); RBC Distribution Width 24.8 % (11.5-14.5); Red Blood Cell (RBC) Count 3.09 mill/uL (4.70-6.10); Target Cells SLIGHT = 2-5 cells (100X) (0-1/hpf); White Blood Cell (WBC) Count 7.7 thou/uL (4.8-10.8)
[2021-08-26 07:33] LABS: Base Excess (BEa) 1.8 mEq/L (-2.0 to +3.0); CO2 Tension 45.6 mmHg (35.0-45.0); Carboxyhemoglobin (COHb) 1.3 gm% (0.0-3.0); Hemoglobin (Hb) 9.2 g/dL (14.0-18.0); O2 Tension (PaO2), arterial 86.4 mmHg (80.0-100.0); pH, Arterial 7.39 (7.35-7.45)
[2021-08-26 07:34] LABS: Puncture Site LRA
[2021-08-26] MEDS: Metoprolol Tartrate 50 MG TAB PO SCH ×2 (08:22→21:03)
[2021-08-26] MEDS: Famotidine/PF 20 mg/2ml Vial SLOW IVP SCH ×2 (08:22→21:02)
[2021-08-26] MEDS: Enoxaparin Sodium 40 MG/0.4 ML SYRINGE SC SCH (08:22)
[2021-08-26] MEDS: Labetalol HCl 100 MG/20 ML VIAL SLOW IVP PRN (11:38)
[2021-08-26 13:57] LABS: Reference Lab Name KARIUS
[2021-08-26] MEDS ORDERED: Metoprolol Tartrate 50 MG TAB PO SCH (14:00)
[2021-08-26] MEDS: Gabapentin 100 MG CAP PO SCH (21:03)
[2021-08-26] MEDS: Lorazepam 2 MG/ML VIAL SLOW IVP PRN (21:13)
[2021-08-27] MEDS: methylPREDNISolone Sod Succ 40 MG VIAL IVP SCH ×4 (00:58→20:49)
[2021-08-27] MEDS: fentaNYL Citrate/PF 2,000 MCG in Sodium Chloride 0.9% 60 ML IV SCH (02:30)
[2021-08-27] MEDS: Morphine 4 MG/ML VIAL SLOW IVP PRN (02:51)
[2021-08-27] MEDS: Lorazepam 2 MG/ML VIAL SLOW IVP PRN (02:51)
[2021-08-27 04:18] LABS: Anion Gap 13 mmol/L (10-20); BUN (Urea Nitrogen) 29 mg/dL (8.9-20.6); Calc. Creatinine Clearance 251 mL/min (70-130); Calcium 9.2 mg/dL (7.8-10.44); Carbon Dioxide 26 mmol/L (22-29); Chloride 117 mmol/L (98-107); Glucose 131 mg/dL (70-105); Potassium 4.8 mmol/L (3.5-5.1); Sodium 151 mmol/L (136-145)
[2021-08-27 04:45] LABS: Band 5 % (5-11); Hemoglobin 9.8 g/dL (14.0-18.0); Hypochromia SLIGHT = 6-15 cells (100X) (0-5/hpf); Lymphocytes 20 % (21-51); MDiff Complete? YES; Mean Corpuscular HGB CONC 30.6 g/dL (32.0-36.0); Mean Corpuscular Volume 91.5 fL (78.0-98.0); Mean Platelet Volume 12.6 fL (7.4-10.4); Monocytes 15 % (0-10); Neutrophil 60 % (42-75); Nucleated RBC 197 % (0); Platelet Count 172 thou/uL (130-400); Platelet Morphology Comment Appears Adequate; Polychromasia SLIGHT = 2-3 cells (100X) (0-2/hpf); RBC Distribution Width 22.1 % (11.5-14.5); Red Blood Cell (RBC) Count 3.49 mill/uL (4.70-6.10); Target Cells SLIGHT = 2-5 cells (100X) (0-1/hpf); White Blood Cell (WBC) Count 5.2 thou/uL (4.8-10.8)
[2021-08-27] MEDS: Meropenem 1 GM in Sodium Chloride 0.9% 100 ML IVPB SCH (05:33)
[2021-08-27 06:59] LABS: Actual Bicarbonate (HCO3a) 28.6 mEq/L (22-28); Base Excess (BEa) 2.5 mEq/L (-2.0 to +3.0); CO2 Tension 50.9 mmHg (35.0-45.0); Calcium, Ionized (arterial) 1.23 mmol/L (1.12-1.30); Hemoglobin (Hb) 10.9 g/dL (14.0-18.0); O2 Tension (PaO2), arterial 101.7 mmHg (80.0-100.0); Potassium - ABG Lab 5.09 mmol/L (3.70-5.30); pH, Arterial 7.37 (7.35-7.45)
[2021-08-27 07:06] LABS: ALV-art Gradient 119.875 mmHg (0-20); Puncture Site RRA
[2021-08-27] MEDS ORDERED: Dextrose 5% in Water 1,000 ML IV SCH (07:30)
[2021-08-27] MEDS: Famotidine/PF 20 mg/2ml Vial SLOW IVP SCH ×2 (08:48→20:49)
[2021-08-27] MEDS: Enoxaparin Sodium 40 MG/0.4 ML SYRINGE SC SCH (08:48)
[2021-08-27] MEDS: Metoprolol Tartrate 50 MG TAB PO SCH ×2 (11:42→20:49)
[2021-08-27 17:43] LABS: ANA Symphony (Qualitative) Negative (Negative); ANA Symphony (Quantitative) 0.4 Ratio (< 0.7 Negative); dsDNA IgG Antibody 2.1 IU/mL (<10 Negative)
[2021-08-27 19:13] LABS: CCP IgG Antibody 3.5 EliAU/mL (<7 Negative); EliA RAS New Method **** NEW METHOD ****; Rheumatoid Factor IgA Antibody 5.9 IU/mL (<14 Negative); Rheumatoid Factor IgM Antibody 1.9 IU/mL (<3.5 Negative)
[2021-08-27] MEDS: Gabapentin 100 MG CAP PO SCH (20:50)
[2021-08-28 05:34] LABS: Anion Gap 8 mmol/L (10-20); BUN (Urea Nitrogen) 33 mg/dL (8.9-20.6); Calc. Creatinine Clearance 259 mL/min (70-130); Carbon Dioxide 32 mmol/L (22-29); Chloride 114 mmol/L (98-107); Glucose 130 mg/dL (70-105); Potassium 4.9 mmol/L (3.5-5.1); Sodium 149 mmol/L (136-145)
[2021-08-28 05:47] LABS: Anisocytosis MODERATE=16-30 cells (100X) (0-5/hpf); Band 2 % (5-11); Lymphocytes 22 % (21-51); MDiff Complete? YES; Mean Corpuscular HGB CONC 31.6 g/dL (32.0-36.0); Mean Corpuscular Hemoglobin 28.8 pg (27.0-31.0); Mean Corpuscular Volume 91.2 fL (78.0-98.0); Monocytes 10 % (0-10); Neutrophil 66 % (42-75); Nucleated RBC 504 % (0); Platelet Count 190 thou/uL (130-400); Platelet Morphology Comment Appears Adequate; Polychromasia MARKED = >4 cells (100X) (0-2/hpf); RBC Distribution Width 23.6 % (11.5-14.5); Red Blood Cell (RBC) Count 3.46 mill/uL (4.70-6.10); Stomatocytes SLIGHT = 2-5 cells (100X) (0-1/hpf); Target Cells MODERATE= 6-15 cells (100X) (0-1/hpf)
[2021-08-28 06:43] LABS: Actual Bicarbonate (HCO3a) 29.9 mEq/L (22-28); Base Excess (BEa) 4.5 mEq/L (-2.0 to +3.0); CO2 Tension 48.6 mmHg (35.0-45.0); Calcium, Ionized (arterial) 1.24 mmol/L (1.12-1.30); Carboxyhemoglobin (COHb) 0.7 gm% (0.0-3.0); Hemoglobin (Hb) 10.7 g/dL (14.0-18.0); O2 Tension (PaO2), arterial 137.7 mmHg (80.0-100.0); Potassium - ABG Lab 4.74 mmol/L (3.70-5.30); pH, Arterial 7.41 (7.35-7.45)
[2021-08-28 06:45] LABS: Puncture Site LRA
[2021-08-28] MEDS ORDERED: DC Sedation Protocol FS SCH (07:24)
[2021-08-28] MEDS: Famotidine 20 MG TAB PO SCH ×2 (09:09→20:14)
[2021-08-28] MEDS: Enoxaparin Sodium 40 MG/0.4 ML SYRINGE SC SCH (09:09)
[2021-08-28] MEDS: Metoprolol Tartrate 50 MG TAB PO SCH ×2 (09:09→20:15)
[2021-08-28] MEDS ORDERED: Nitroglycerin 50 MG/250 ML BOT 250 ML ONE (09:47)
[2021-08-28 15:13] LABS: Cytoplasmic (C-ANCA) <1:20 titer (Neg:<1:20); Perinuclear (P-ANCA) <1:20 titer (Neg:<1:20)
[2021-08-28] MEDS: Gabapentin 100 MG CAP PO SCH (20:15)
[2021-08-29] MEDS: Labetalol HCl 100 MG/20 ML VIAL SLOW IVP PRN ×3 (03:27→13:41)
[2021-08-29] MEDS: hydrALAZINE 20 MG/ML VIAL SLOW IVP PRN (04:04)
[2021-08-29 04:17] LABS: Band 1 % (5-11); Hemoglobin 10.6 g/dL (14.0-18.0); Hypochromia SLIGHT = 6-15 cells (100X) (0-5/hpf); Lymphocytes 24 % (21-51); MDiff Complete? YES; Mean Corpuscular HGB CONC 31.8 g/dL (32.0-36.0); Mean Corpuscular Hemoglobin 28.9 pg (27.0-31.0); Mean Platelet Volume 9.1 fL (7.4-10.4); Monocytes 16 % (0-10); Neutrophil 58 % (42-75); Nucleated RBC 157 % (0); Platelet Count 223 thou/uL (130-400); Platelet Morphology Comment Appears Adequate; RBC Distribution Width 22.8 % (11.5-14.5); Reactive Lymphocytes 1 % (0-10); Red Blood Cell (RBC) Count 3.67 mill/uL (4.70-6.10); Target Cells SLIGHT = 2-5 cells (100X) (0-1/hpf)
[2021-08-29 04:18] LABS: Anion Gap 12 mmol/L (10-20); BUN (Urea Nitrogen) 28 mg/dL (8.9-20.6); Calc. Creatinine Clearance 240 mL/min (70-130); Calcium 9.2 mg/dL (7.8-10.44); Carbon Dioxide 30 mmol/L (22-29); Chloride 112 mmol/L (98-107); Glucose 81 mg/dL (70-105); Potassium 3.6 mmol/L (3.5-5.1); Sodium 150 mmol/L (136-145)
[2021-08-29] MEDS ORDERED: hydrALAZINE 20 MG/ML VIAL SLOW IVP SCH (06:00)
[2021-08-29] MEDS ORDERED: NIFEdipine XL 30 MG TAB PO SCH ×2 (09:00→10:30)
[2021-08-29] MEDS: hydrALAZINE 25 MG TAB PO SCH ×3 (09:51→20:55)
[2021-08-29] MEDS: Enoxaparin Sodium 40 MG/0.4 ML SYRINGE SC SCH (09:51)
[2021-08-29] MEDS: Metoprolol Tartrate 50 MG TAB PO SCH (09:52)
[2021-08-29] MEDS: Famotidine 20 MG TAB PO SCH ×2 (09:52→20:54)
[2021-08-29] MEDS ORDERED: Lisinopril 20 MG TAB PO SCH (10:30)
[2021-08-29] MEDS: Gabapentin 100 MG CAP PO SCH (20:53)
[2021-08-29] MEDS: NIFEdipine XL 30 MG TAB PO SCH (20:53)
[2021-08-29] MEDS: Metoprolol Tartrate 100 MG TAB PO SCH (20:54)
[2021-08-30 04:48] LABS: Band 2 % (5-11); Elliptocytes SLIGHT = 2-5 cells (100X) (0-1/hpf); Hemoglobin 13.2 g/dL (14.0-18.0); Large Platelets SLIGHT; Lymphocytes 13 % (21-51); MDiff Complete? YES; Mean Corpuscular HGB CONC 31.5 g/dL (32.0-36.0); Mean Corpuscular Hemoglobin 28.2 pg (27.0-31.0); Mean Corpuscular Volume 89.5 fL (78.0-98.0); Mean Platelet Volume 12.1 fL (7.4-10.4); Monocytes 15 % (0-10); Neutrophil 70 % (42-75); Nucleated RBC 62 % (0); Platelet Count 238 thou/uL (130-400); Platelet Morphology Comment Appears Adequate; Polychromasia MODERATE = 3-4 cells (100X) (0-2/hpf); RBC Distribution Width 21.2 % (11.5-14.5); Red Blood Cell (RBC) Count 4.68 mill/uL (4.70-6.10); Schistocytes MODERATE= 6-15 cells (100X) (0-1/hpf); Target Cells MODERATE= 6-15 cells (100X) (0-1/hpf); Tear Drops SLIGHT = 2-5 cells (100X) (0-1/hpf); White Blood Cell (WBC) Count 10.6 thou/uL (4.8-10.8)
[2021-08-30 04:50] LABS: Anion Gap 15 mmol/L (10-20); BUN (Urea Nitrogen) 20 mg/dL (8.9-20.6); Calc. Creatinine Clearance 274 mL/min (70-130); Calcium 9.4 mg/dL (7.8-10.44); Carbon Dioxide 23 mmol/L (22-29); Chloride 108 mmol/L (98-107); Glucose 99 mg/dL (70-105); Potassium 3.7 mmol/L (3.5-5.1); Sodium 142 mmol/L (136-145)
[2021-08-30] MEDS: Famotidine 20 MG TAB PO SCH ×2 (09:48→21:16)
[2021-08-30] MEDS: NIFEdipine XL 30 MG TAB PO SCH ×2 (09:48→21:18)
[2021-08-30] MEDS: Metoprolol Tartrate 100 MG TAB PO SCH ×2 (09:48→21:18)
[2021-08-30] MEDS: Lisinopril 20 MG TAB PO SCH (09:48)
[2021-08-30] MEDS: hydrALAZINE 25 MG TAB PO SCH ×3 (09:49→21:17)
[2021-08-30] MEDS: Enoxaparin Sodium 40 MG/0.4 ML SYRINGE SC SCH (09:49)
[2021-08-30] MEDS: Gabapentin 100 MG CAP PO SCH (21:16)
[2021-08-30] MEDS: Acetaminophen 325 MG TAB PO PRN (22:05)
[2021-08-31] MEDS: Acetaminophen 325 MG TAB PO PRN ×2 (06:24→21:24)
[2021-08-31 07:10] LABS: Hemoglobin 11.7 g/dL (14.0-18.0); Mean Corpuscular Hemoglobin 28.8 pg (27.0-31.0); Mean Corpuscular Volume 90.1 fL (78.0-98.0); Mean Platelet Volume 11.4 fL (7.4-10.4); Platelet Count 266 thou/uL (130-400); RBC Distribution Width 19.5 % (11.5-14.5); Red Blood Cell (RBC) Count 4.06 mill/uL (4.70-6.10)
[2021-08-31 07:25] LABS: ALT (SGPT) 83 U/L (8-55); AST (SGOT) 46 U/L (5-34); Albumin 2.9 g/dL (3.5-5.0); Alkaline Phosphatase 108 U/L (40-110); Bilirubin, Direct 1.6 mg/dL (0.1-0.3); Bilirubin, Total 2.8 mg/dL (0.2-1.2); Protein, Total 7.2 g/dL (6.0-8.3)
[2021-08-31 07:26] LABS: Anion Gap 14 mmol/L (10-20); BUN (Urea Nitrogen) 23 mg/dL (8.9-20.6); Calc. Creatinine Clearance 0 mL/min (70-130); Calcium 8.9 mg/dL (7.8-10.44); Carbon Dioxide 25 mmol/L (22-29); Chloride 107 mmol/L (98-107); Glucose 88 mg/dL (70-105); Potassium 3.8 mmol/L (3.5-5.1); Sodium 142 mmol/L (136-145)
[2021-08-31 07:34] LABS: Lymphocytes 13 % (21-51); MDiff Complete? YES; Monocytes 8 % (0-10); Neutrophil 79 % (42-75); Nucleated RBC 14 % (0); Platelet Morphology Comment Appears Adequate; Polychromasia MODERATE = 3-4 cells (100X) (0-2/hpf)
[2021-08-31] MEDS: hydrALAZINE 25 MG TAB PO SCH ×3 (09:08→21:40)
[2021-08-31] MEDS: NIFEdipine XL 30 MG TAB PO SCH ×2 (09:08→21:40)
[2021-08-31] MEDS: Enoxaparin Sodium 40 MG/0.4 ML SYRINGE SC SCH (09:08)
[2021-08-31] MEDS: Metoprolol Tartrate 100 MG TAB PO SCH ×2 (09:08→21:40)
[2021-08-31] MEDS: Lisinopril 20 MG TAB PO SCH (09:08)
[2021-08-31] MEDS: Famotidine 20 MG TAB PO SCH ×2 (09:09→21:24)
[2021-08-31] MEDS: Gabapentin 100 MG CAP PO SCH (21:23)
[2021-09-01 06:24] LABS: INR-International Normal Ratio 1.1; Prothrombin Time 14.3 sec (12.0-14.7)
[2021-09-01 06:39] LABS: Hemoglobin 13.1 g/dL (14.0-18.0); Mean Corpuscular HGB CONC 32.5 g/dL (32.0-36.0); Mean Corpuscular Hemoglobin 29.3 pg (27.0-31.0); Mean Corpuscular Volume 90.1 fL (78.0-98.0); Mean Platelet Volume 11.3 fL (7.4-10.4); Platelet Count 293 thou/uL (130-400); RBC Distribution Width 18.9 % (11.5-14.5); Red Blood Cell (RBC) Count 4.46 mill/uL (4.70-6.10)
[2021-09-01 06:40] LABS: ALT (SGPT) 76 U/L (8-55); AST (SGOT) 56 U/L (5-34); Albumin 3.2 g/dL (3.5-5.0); Alkaline Phosphatase 122 U/L (40-110); Anion Gap 14 mmol/L (10-20); BUN (Urea Nitrogen) 18 mg/dL (8.9-20.6); Bilirubin, Direct 1.9 mg/dL (0.1-0.3); Bilirubin, Total 3.2 mg/dL (0.2-1.2); Calc. Creatinine Clearance 221 mL/min (70-130); Calcium 9.6 mg/dL (7.8-10.44); Carbon Dioxide 22 mmol/L (22-29); Chloride 108 mmol/L (98-107); Glucose 97 mg/dL (70-105); Potassium 3.1 mmol/L (3.5-5.1); Protein, Total 8.1 g/dL (6.0-8.3); Sodium 141 mmol/L (136-145)
[2021-09-01 06:50] LABS: Anisocytosis MODERATE=16-30 cells (100X) (0-5/hpf); Large Platelets SLIGHT; Lymphocytes 10 % (21-51); MDiff Complete? YES; Monocytes 9 % (0-10); Neutrophil 80 % (42-75); Platelet Morphology Comment Appears Adequate; Polychromasia MODERATE = 3-4 cells (100X) (0-2/hpf); Reactive Lymphocytes 1 % (0-10); Target Cells SLIGHT = 2-5 cells (100X) (0-1/hpf)
[2021-09-01] MEDS: Famotidine 20 MG TAB PO SCH ×2 (08:38→22:07)
[2021-09-01] MEDS: Enoxaparin Sodium 40 MG/0.4 ML SYRINGE SC SCH (08:39)
[2021-09-01] MEDS: Lactated Ringer's 1,000 ML IV SCH ×2 (08:39→22:08)
[2021-09-01] MEDS: NIFEdipine XL 30 MG TAB PO SCH ×2 (08:39→22:08)
[2021-09-01] MEDS: Lisinopril 20 MG TAB PO SCH (08:39)
[2021-09-01] MEDS: Metoprolol Tartrate 100 MG TAB PO SCH ×2 (08:45→22:08)
[2021-09-01] MEDS: hydrALAZINE 25 MG TAB PO SCH ×3 (08:46→22:07)
[2021-09-01 15:30] LABS: SARS-CoV-2 PCR by NAA Not Detected (NotDetected)
[2021-09-01] MEDS: Acetaminophen 325 MG TAB PO PRN (22:06)
[2021-09-01] MEDS: Gabapentin 100 MG CAP PO SCH (22:07)
[2021-09-02 07:31] LABS: Hemoglobin 11.4 g/dL (14.0-18.0); Mean Corpuscular HGB CONC 31.2 g/dL (32.0-36.0); Mean Platelet Volume 10.7 fL (7.4-10.4); Platelet Count 399 thou/uL (130-400); RBC Distribution Width 18.4 % (11.5-14.5); Red Blood Cell (RBC) Count 4.05 mill/uL (4.70-6.10)
[2021-09-02 07:44] LABS: Anion Gap 16 mmol/L (10-20); BUN (Urea Nitrogen) 18 mg/dL (8.9-20.6); Calc. Creatinine Clearance 223 mL/min (70-130); Calcium 9.3 mg/dL (7.8-10.44); Carbon Dioxide 21 mmol/L (22-29); Chloride 106 mmol/L (98-107); Glucose 77 mg/dL (70-105); Potassium 3.2 mmol/L (3.5-5.1); Sodium 140 mmol/L (136-145)
[2021-09-02] MEDS: Enoxaparin Sodium 40 MG/0.4 ML SYRINGE SC SCH (08:19)
[2021-09-02] MEDS: Acetaminophen 325 MG TAB PO PRN ×3 (08:19→21:10)
[2021-09-02] MEDS: Famotidine 20 MG TAB PO SCH ×2 (08:20→21:11)
[2021-09-02] MEDS: Lisinopril 20 MG TAB PO SCH (08:20)
[2021-09-02] MEDS: NIFEdipine XL 30 MG TAB PO SCH ×2 (08:20→21:13)
[2021-09-02] MEDS: hydrALAZINE 25 MG TAB PO SCH ×3 (08:20→21:13)
[2021-09-02 08:40] LABS: Band 11 % (5-11); Lymphocytes 6 % (21-51); MDiff Complete? YES; Monocytes 5 % (0-10); Neutrophil 78 % (42-75); White Blood Cell (WBC) Count 21.7 thou/uL (4.8-10.8)
[2021-09-02] MEDS: Metoprolol Tartrate 100 MG TAB PO SCH ×2 (09:28→21:13)
[2021-09-02] MEDS: Lactated Ringer's 1,000 ML IV SCH (09:28)
[2021-09-02] MEDS ORDERED: Iopamidol-370 76% 500 ML 1 ML ONE (11:35)
[2021-09-02] MEDS: Gabapentin 100 MG CAP PO SCH (21:06)
[2021-09-03] MEDS: Lactated Ringer's 1,000 ML IV SCH ×2 (01:25→13:27)
[2021-09-03 07:51] LABS: Anion Gap 17 mmol/L (10-20); BUN (Urea Nitrogen) 15 mg/dL (8.9-20.6); Calc. Creatinine Clearance 229 mL/min (70-130); Calcium 8.7 mg/dL (7.8-10.44); Carbon Dioxide 19 mmol/L (22-29); Chloride 105 mmol/L (98-107); Glucose 83 mg/dL (70-105); Potassium 3.1 mmol/L (3.5-5.1); Sodium 138 mmol/L (136-145)
[2021-09-03] MEDS: Famotidine 20 MG TAB PO SCH ×2 (08:48→20:42)
[2021-09-03] MEDS: hydrALAZINE 25 MG TAB PO SCH ×3 (08:49→20:42)
[2021-09-03] MEDS: NIFEdipine XL 30 MG TAB PO SCH ×2 (08:49→20:43)
[2021-09-03] MEDS: Enoxaparin Sodium 40 MG/0.4 ML SYRINGE SC SCH (08:49)
[2021-09-03] MEDS: Lisinopril 20 MG TAB PO SCH (08:50)
[2021-09-03] MEDS: Metoprolol Tartrate 100 MG TAB PO SCH ×2 (08:50→20:42)
[2021-09-03 09:49] LABS: Anisocytosis MODERATE=16-30 cells (100X) (0-5/hpf); Hemoglobin 11.7 g/dL (14.0-18.0); Lymphocytes 16 % (21-51); MDiff Complete? YES; Mean Corpuscular HGB CONC 32.4 g/dL (32.0-36.0); Mean Corpuscular Hemoglobin 28.8 pg (27.0-31.0); Mean Corpuscular Volume 88.8 fL (78.0-98.0); Mean Platelet Volume 9.6 fL (7.4-10.4); Monocytes 9 % (0-10); Neutrophil 75 % (42-75); Platelet Clumps SLIGHT; Platelet Count 397 thou/uL (130-400); Platelet Morphology Comment Appears Adequate; Poikilocytosis SLIGHT = 6-15 cells (100X) (0-5/hpf); Polychromasia SLIGHT = 2-3 cells (100X) (0-2/hpf); RBC Distribution Width 18.3 % (11.5-14.5); Red Blood Cell (RBC) Count 4.05 mill/uL (4.70-6.10); Target Cells MODERATE= 6-15 cells (100X) (0-1/hpf); White Blood Cell (WBC) Count 17.1 thou/uL (4.8-10.8)
[2021-09-03] MEDS: Gabapentin 100 MG CAP PO SCH (20:42)
[2021-09-04] MEDS: Lactated Ringer's 1,000 ML IV SCH ×3 (02:43→22:41)
[2021-09-04 07:59] LABS: Anion Gap 15 mmol/L (10-20); BUN (Urea Nitrogen) 10 mg/dL (8.9-20.6); Calc. Creatinine Clearance 230 mL/min (70-130); Calcium 8.6 mg/dL (7.8-10.44); Carbon Dioxide 23 mmol/L (22-29); Chloride 105 mmol/L (98-107); Glucose 85 mg/dL (70-105); Sodium 140 mmol/L (136-145)
[2021-09-04 08:05] LABS: Potassium 2.5 mmol/L (3.5-5.1)
[2021-09-04 08:09] LABS: Hemoglobin 10.9 g/dL (14.0-18.0); Mean Corpuscular HGB CONC 32.4 g/dL (32.0-36.0); Mean Corpuscular Hemoglobin 29.2 pg (27.0-31.0); Mean Corpuscular Volume 90.3 fL (78.0-98.0); Mean Platelet Volume 9.1 fL (7.4-10.4); Platelet Count 494 thou/uL (130-400); RBC Distribution Width 18.2 % (11.5-14.5); Red Blood Cell (RBC) Count 3.72 mill/uL (4.70-6.10); White Blood Cell (WBC) Count 12.4 thou/uL (4.8-10.8)
[2021-09-04] MEDS: Lisinopril 20 MG TAB PO SCH (08:55)
[2021-09-04] MEDS: Enoxaparin Sodium 40 MG/0.4 ML SYRINGE SC SCH (08:55)
[2021-09-04] MEDS: Metoprolol Tartrate 100 MG TAB PO SCH ×2 (08:55→20:35)
[2021-09-04] MEDS: NIFEdipine XL 30 MG TAB PO SCH ×2 (08:55→20:35)
[2021-09-04] MEDS: hydrALAZINE 25 MG TAB PO SCH ×3 (08:57→20:34)
[2021-09-04] MEDS ORDERED: Potassium Chloride 20 MEQ in Premix Bag 1 BAG IVPB SCH (09:00)
[2021-09-04 10:04] LABS: Magnesium 1.9 mg/dL (1.6-2.6)
[2021-09-04 10:47] LABS: Band 1 % (5-11); Eosinophils 1 % (0-10); Hypochromia SLIGHT = 6-15 cells (100X) (0-5/hpf); Lymphocytes 6 % (21-51); MDiff Complete? YES; Monocytes 8 % (0-10); Neutrophil 84 % (42-75); Nucleated RBC 1 % (0); Platelet Morphology Comment Appears Increased; Polychromasia SLIGHT = 2-3 cells (100X) (0-2/hpf); Target Cells SLIGHT = 2-5 cells (100X) (0-1/hpf)
[2021-09-04] MEDS: Potassium Chloride 10 MEQ in Premix Bag 1 BAG IVPB SCH ×2 (12:28→16:14)
[2021-09-04] MEDS ORDERED: Potassium Chloride 20 MEQ TAB PO SCH (12:30)
[2021-09-04] MEDS: Famotidine 20 MG TAB PO SCH ×2 (16:16→20:34)
[2021-09-04] MEDS: Gabapentin 100 MG CAP PO SCH (20:34)
[2021-09-04] MEDS: Benzonatate 100 MG CAP PO PRN (20:39)
[2021-09-04] MEDS: Acetaminophen 325 MG TAB PO PRN (20:39)
[2021-09-05 07:32] LABS: Hemoglobin 10.3 g/dL (14.0-18.0); Mean Corpuscular HGB CONC 32.8 g/dL (32.0-36.0); Mean Corpuscular Hemoglobin 28.6 pg (27.0-31.0); Mean Corpuscular Volume 86.9 fL (78.0-98.0); Mean Platelet Volume 8.8 fL (7.4-10.4); Platelet Count 518 thou/uL (130-400); RBC Distribution Width 17.9 % (11.5-14.5); Red Blood Cell (RBC) Count 3.59 mill/uL (4.70-6.10); White Blood Cell (WBC) Count 10.1 thou/uL (4.8-10.8)
[2021-09-05 07:49] LABS: Anion Gap 13 mmol/L (10-20); BUN (Urea Nitrogen) 8 mg/dL (8.9-20.6); Calc. Creatinine Clearance 250 mL/min (70-130); Calcium 8.5 mg/dL (7.8-10.44); Carbon Dioxide 24 mmol/L (22-29); Chloride 105 mmol/L (98-107); Glucose 80 mg/dL (70-105); Sodium 140 mmol/L (136-145)
[2021-09-05 07:55] LABS: Potassium 2.4 mmol/L (3.5-5.1)
[2021-09-05 08:40] LABS: Anisocytosis MODERATE=16-30 cells (100X) (0-5/hpf); Eosinophils 1 % (0-10); Hypochromia SLIGHT = 6-15 cells (100X) (0-5/hpf); Lymphocytes 12 % (21-51); MDiff Complete? YES; Monocytes 16 % (0-10); Neutrophil 68 % (42-75); Nucleated RBC 1 % (0); Platelet Morphology Comment Appears Increased; Polychromasia MODERATE = 3-4 cells (100X) (0-2/hpf); Reactive Lymphocytes 2 % (0-10); Schistocytes SLIGHT = 2-5 cells (100X) (0-1/hpf); Spherocytes SLIGHT = 1-5 cells (100X) (None Seen); Target Cells MODERATE= 6-15 cells (100X) (0-1/hpf)
[2021-09-05] MEDS: Enoxaparin Sodium 40 MG/0.4 ML SYRINGE SC SCH (09:54)
[2021-09-05] MEDS: NIFEdipine XL 30 MG TAB PO SCH ×2 (09:54→19:59)
[2021-09-05] MEDS: hydrALAZINE 25 MG TAB PO SCH ×3 (09:55→19:58)
[2021-09-05] MEDS: Metoprolol Tartrate 100 MG TAB PO SCH ×2 (09:55→19:58)
[2021-09-05] MEDS: Lisinopril 20 MG TAB PO SCH (15:34)
[2021-09-05] MEDS: Famotidine 20 MG TAB PO SCH ×2 (15:34→19:57)
[2021-09-05] MEDS: Benzonatate 100 MG CAP PO PRN ×2 (15:43→19:56)
[2021-09-05] MEDS ORDERED: Apixaban 5 MG TAB PO SCH (16:00)
[2021-09-05] MEDS ORDERED: Potassium Chloride 20 MEQ TAB PO SCH ×2 (17:15→22:00)
[2021-09-05] MEDS: Acetaminophen 325 MG TAB PO PRN (19:56)
[2021-09-05] MEDS: Gabapentin 100 MG CAP PO SCH (19:57)
[2021-09-06 06:33] LABS: Hemoglobin 11.1 g/dL (14.0-18.0); Mean Corpuscular Hemoglobin 28.7 pg (27.0-31.0); Mean Corpuscular Volume 86.9 fL (78.0-98.0); Mean Platelet Volume 8.4 fL (7.4-10.4); Platelet Count 574 thou/uL (130-400); RBC Distribution Width 17.6 % (11.5-14.5); Red Blood Cell (RBC) Count 3.87 mill/uL (4.70-6.10); White Blood Cell (WBC) Count 10.7 thou/uL (4.8-10.8)
[2021-09-06 06:44] LABS: Anion Gap 15 mmol/L (10-20); BUN (Urea Nitrogen) 10 mg/dL (8.9-20.6); Calc. Creatinine Clearance 207 mL/min (70-130); Calcium 9.1 mg/dL (7.8-10.44); Carbon Dioxide 23 mmol/L (22-29); Chloride 103 mmol/L (98-107); Glucose 84 mg/dL (70-105); Sodium 138 mmol/L (136-145)
[2021-09-06 06:47] LABS: Potassium 2.6 mmol/L (3.5-5.1)
[2021-09-06] MEDS ORDERED: Potassium Chloride 20 MEQ TAB PO SCH ×3 (07:30→16:00)
[2021-09-06 07:33] LABS: Anisocytosis MODERATE=16-30 cells (100X) (0-5/hpf); Band 1 % (5-11); Eosinophils 2 % (0-10); Lymphocytes 14 % (21-51); MDiff Complete? YES; Monocytes 17 % (0-10); Neutrophil 66 % (42-75); Platelet Morphology Comment Appears Increased; Polychromasia MODERATE = 3-4 cells (100X) (0-2/hpf); Target Cells SLIGHT = 2-5 cells (100X) (0-1/hpf)
[2021-09-06] MEDS: Apixaban 5 MG TAB PO SCH ×2 (08:22→20:24)
[2021-09-06] MEDS: Famotidine 20 MG TAB PO SCH ×2 (08:23→20:24)
[2021-09-06] MEDS: Lisinopril 20 MG TAB PO SCH (09:30)
[2021-09-06] MEDS: NIFEdipine XL 30 MG TAB PO SCH ×2 (09:30→20:24)
[2021-09-06] MEDS: hydrALAZINE 25 MG TAB PO SCH ×2 (09:30→17:38)
[2021-09-06] MEDS: Metoprolol Tartrate 100 MG TAB PO SCH ×2 (10:19→20:25)
[2021-09-06 10:39] VITALS: BMI 37.9
[2021-09-06] MEDS: Gabapentin 100 MG CAP PO SCH (20:24)
[2021-09-07 07:21] LABS: Hemoglobin 10.9 g/dL (14.0-18.0); Mean Corpuscular HGB CONC 32.8 g/dL (32.0-36.0); Mean Corpuscular Hemoglobin 28.6 pg (27.0-31.0); Mean Corpuscular Volume 87.2 fL (78.0-98.0); Mean Platelet Volume 8.2 fL (7.4-10.4); Platelet Count 568 thou/uL (130-400); RBC Distribution Width 17.8 % (11.5-14.5); Red Blood Cell (RBC) Count 3.83 mill/uL (4.70-6.10)
[2021-09-07] MEDS ORDERED: Potassium Chloride 20 MEQ TAB PO SCH (07:30)
[2021-09-07 07:34] LABS: Anion Gap 12 mmol/L (10-20); BUN (Urea Nitrogen) 7 mg/dL (8.9-20.6); Calc. Creatinine Clearance 226 mL/min (70-130); Calcium 8.9 mg/dL (7.8-10.44); Carbon Dioxide 24 mmol/L (22-29); Chloride 104 mmol/L (98-107); Glucose 84 mg/dL (70-105); Sodium 137 mmol/L (136-145)
[2021-09-07 07:39] LABS: Potassium 2.8 mmol/L (3.5-5.1)
[2021-09-07 08:14] LABS: Band 1 % (5-11); Eosinophils 2 % (0-10); Hypochromia SLIGHT = 6-15 cells (100X) (0-5/hpf); Lymphocytes 18 % (21-51); MDiff Complete? YES; Monocytes 11 % (0-10); Neutrophil 67 % (42-75); Platelet Morphology Comment Appears Increased; Polychromasia SLIGHT = 2-3 cells (100X) (0-2/hpf); Schistocytes SLIGHT = 2-5 cells (100X) (0-1/hpf); Target Cells MODERATE= 6-15 cells (100X) (0-1/hpf)
[2021-09-07] MEDS: NIFEdipine XL 30 MG TAB PO SCH ×2 (09:00→21:45)
[2021-09-07] MEDS: Apixaban 5 MG TAB PO SCH ×2 (09:01→21:37)
[2021-09-07] MEDS: Metoprolol Tartrate 100 MG TAB PO SCH ×2 (09:01→21:44)
[2021-09-07] MEDS: Famotidine 20 MG TAB PO SCH ×2 (09:01→21:38)
[2021-09-07] MEDS: Lisinopril 20 MG TAB PO SCH (09:01)
[2021-09-07] MEDS: Potassium Chloride 20 MEQ TAB PO SCH ×2 (16:46→21:38)
[2021-09-07] MEDS: Gabapentin 100 MG CAP PO SCH (21:38)
[2021-09-07] MEDS: Benzonatate 100 MG CAP PO PRN (21:44)
[2021-09-08] MEDS: Metoprolol Tartrate 100 MG TAB PO SCH ×2 (10:17→20:48)
[2021-09-08] MEDS: Potassium Chloride 20 MEQ TAB PO SCH ×2 (10:18→18:41)
[2021-09-08] MEDS: Apixaban 5 MG TAB PO SCH ×2 (10:18→20:47)
[2021-09-08] MEDS: Famotidine 20 MG TAB PO SCH ×2 (10:19→20:47)
[2021-09-08 12:00] LABS: Hemoglobin 11.5 g/dL (14.0-18.0); Mean Corpuscular HGB CONC 32.4 g/dL (32.0-36.0); Mean Corpuscular Hemoglobin 28.4 pg (27.0-31.0); Mean Corpuscular Volume 87.4 fL (78.0-98.0); Mean Platelet Volume 8.3 fL (7.4-10.4); Platelet Count 606 thou/uL (130-400); RBC Distribution Width 17.7 % (11.5-14.5); Red Blood Cell (RBC) Count 4.07 mill/uL (4.70-6.10); White Blood Cell (WBC) Count 13.3 thou/uL (4.8-10.8)
[2021-09-08 12:13] LABS: Eosinophils 1 % (0-10); Lymphocytes 12 % (21-51); MDiff Complete? YES; Monocytes 11 % (0-10); Neutrophil 76 % (42-75); Platelet Morphology Comment Appears Increased; Polychromasia SLIGHT = 2-3 cells (100X) (0-2/hpf); Target Cells SLIGHT = 2-5 cells (100X) (0-1/hpf)
[2021-09-08] MEDS: Lisinopril 20 MG TAB PO SCH (12:14)
[2021-09-08] MEDS: NIFEdipine XL 30 MG TAB PO SCH ×2 (12:14→20:48)
[2021-09-08 12:23] LABS: Phosphorus 3.4 mg/dL (2.3-4.7)
[2021-09-08 12:25] LABS: ALT (SGPT) 30 U/L (8-55); AST (SGOT) 29 U/L (5-34); Albumin 3.4 g/dL (3.5-5.0); Alkaline Phosphatase 116 U/L (40-110); Anion Gap 14 mmol/L (10-20); BUN (Urea Nitrogen) 10 mg/dL (8.9-20.6); Bilirubin, Total 1.2 mg/dL (0.2-1.2); Calc. Creatinine Clearance 215 mL/min (70-130); Calcium 9.2 mg/dL (7.8-10.44); Carbon Dioxide 21 mmol/L (22-29); Chloride 105 mmol/L (98-107); Globulin 5.3 g/dL (2.4-3.5); Glucose 97 mg/dL (70-105); Magnesium 1.9 mg/dL (1.6-2.6); Potassium 3.4 mmol/L (3.5-5.1); Protein, Total 8.7 g/dL (6.0-8.3); Sodium 137 mmol/L (136-145)
[2021-09-08] MEDS: Potassium Chloride 10 MEQ in Premix Bag 1 BAG IVPB SCH (13:04)
[2021-09-08] MEDS ORDERED: Potassium Chloride 20 MEQ TAB PO SCH (13:15)
[2021-09-08 19:54] LABS: Creatinine, Urine 135.16 mg/dL (63-166); Potassium, Urine 24.8 mmol/L
[2021-09-08] MEDS: Gabapentin 100 MG CAP PO SCH (20:47)
[2021-09-09 07:38] LABS: Anion Gap 15 mmol/L (10-20); BUN (Urea Nitrogen) 11 mg/dL (8.9-20.6); Calc. Creatinine Clearance 217 mL/min (70-130); Calcium 9.1 mg/dL (7.8-10.44); Carbon Dioxide 19 mmol/L (22-29); Chloride 106 mmol/L (98-107); Glucose 82 mg/dL (70-105); Potassium 3.7 mmol/L (3.5-5.1); Sodium 136 mmol/L (136-145)
[2021-09-09 07:51] LABS: Mean Corpuscular HGB CONC 33.3 g/dL (32.0-36.0); Mean Corpuscular Hemoglobin 28.9 pg (27.0-31.0); Mean Corpuscular Volume 86.7 fL (78.0-98.0); Mean Platelet Volume 7.8 fL (7.4-10.4); Platelet Count 585 thou/uL (130-400); RBC Distribution Width 17.4 % (11.5-14.5); Red Blood Cell (RBC) Count 3.45 mill/uL (4.70-6.10); White Blood Cell (WBC) Count 9.7 thou/uL (4.8-10.8)
[2021-09-09 07:55] LABS: Anisocytosis SLIGHT = 6-15 cells (100X) (0-5/hpf); Band 1 % (5-11); Eosinophils 2 % (0-10); Lymphocytes 17 % (21-51); MDiff Complete? YES; Monocytes 8 % (0-10); Neutrophil 68 % (42-75); Platelet Morphology Comment Appears Increased; Reactive Lymphocytes 4 % (0-10); Target Cells SLIGHT = 2-5 cells (100X) (0-1/hpf)
[2021-09-09] MEDS ORDERED: Potassium Chloride 10 MEQ TAB PO SCH ×2 (08:00→17:00)
[2021-09-09] MEDS: NIFEdipine XL 30 MG TAB PO SCH ×2 (08:59→20:09)
[2021-09-09] MEDS: Potassium Chloride 20 MEQ TAB PO SCH (08:59)
[2021-09-09] MEDS: Apixaban 5 MG TAB PO SCH ×2 (08:59→20:09)
[2021-09-09] MEDS: Lisinopril 20 MG TAB PO SCH (08:59)
[2021-09-09] MEDS: Famotidine 20 MG TAB PO SCH ×2 (09:00→20:08)
[2021-09-09] MEDS: Metoprolol Tartrate 100 MG TAB PO SCH ×2 (09:17→20:08)
[2021-09-09] MEDS ORDERED: Potassium Chloride 20 MEQ TAB PO SCH (10:15)
[2021-09-09] MEDS: Gabapentin 100 MG CAP PO SCH (20:08)
[2021-09-09 23:39] LABS: SARS-CoV-2 PCR by NAA Not Detected (NotDetected)
[2021-09-10] MEDS: NIFEdipine XL 30 MG TAB PO SCH ×2 (07:58→19:33)
[2021-09-10] MEDS: Lisinopril 20 MG TAB PO SCH (07:59)
[2021-09-10] MEDS: Famotidine 20 MG TAB PO SCH ×2 (07:59→19:34)
[2021-09-10] MEDS: Apixaban 5 MG TAB PO SCH ×2 (07:59→19:35)
[2021-09-10] MEDS: Metoprolol Tartrate 100 MG TAB PO SCH ×2 (07:59→19:35)
[2021-09-10 12:31] LABS: Hemoglobin 10.5 g/dL (14.0-18.0); Mean Corpuscular HGB CONC 33.1 g/dL (32.0-36.0); Mean Corpuscular Hemoglobin 28.5 pg (27.0-31.0); Mean Corpuscular Volume 86.3 fL (78.0-98.0); Mean Platelet Volume 7.5 fL (7.4-10.4); Platelet Count 588 thou/uL (130-400); RBC Distribution Width 17.5 % (11.5-14.5); Red Blood Cell (RBC) Count 3.69 mill/uL (4.70-6.10); White Blood Cell (WBC) Count 9.5 thou/uL (4.8-10.8)
[2021-09-10 12:50] LABS: Anion Gap 15 mmol/L (10-20); BUN (Urea Nitrogen) 9 mg/dL (8.9-20.6); Calc. Creatinine Clearance 226 mL/min (70-130); Calcium 9.1 mg/dL (7.8-10.44); Carbon Dioxide 19 mmol/L (22-29); Chloride 105 mmol/L (98-107); Glucose 83 mg/dL (70-105); Magnesium 1.9 mg/dL (1.6-2.6); Potassium 4.2 mmol/L (3.5-5.1); Sodium 135 mmol/L (136-145)
[2021-09-10 13:09] LABS: Anisocytosis SLIGHT = 6-15 cells (100X) (0-5/hpf); Eosinophils 1 % (0-10); Lymphocytes 20 % (21-51); MDiff Complete? YES; Monocytes 4 % (0-10); Neutrophil 74 % (42-75); Nucleated RBC 1 % (0); Platelet Morphology Comment Appears Increased; Polychromasia SLIGHT = 2-3 cells (100X) (0-2/hpf); Reactive Lymphocytes 1 % (0-10)
[2021-09-10] MEDS: Senokot S 8.6-50 MG TAB PO SCH (19:34)
[2021-09-10] MEDS: Gabapentin 100 MG CAP PO SCH (19:35)
[2021-09-11 07:31] LABS: Magnesium 1.9 mg/dL (1.6-2.6); Phosphorus 3.8 mg/dL (2.3-4.7)
[2021-09-11 09:20] VITALS: BP 120/71; TEMP 98.6
[2021-09-11] MEDS: NIFEdipine XL 30 MG TAB PO SCH (09:41)
[2021-09-11] MEDS: Apixaban 5 MG TAB PO SCH (09:41)
[2021-09-11] MEDS: Metoprolol Tartrate 100 MG TAB PO SCH (09:42)
[2021-09-11] MEDS: Famotidine 20 MG TAB PO SCH (09:42)
[2021-09-11] MEDS: Senokot S 8.6-50 MG TAB PO SCH (09:42)
[2021-09-11] MEDS: Lisinopril 20 MG TAB PO SCH (09:42)
[2021-09-11 09:57] LABS: Hemoglobin 9.8 g/dL (14.0-18.0); Mean Corpuscular HGB CONC 32.5 g/dL (32.0-36.0); Mean Corpuscular Hemoglobin 27.7 pg (27.0-31.0); Mean Platelet Volume 7.6 fL (7.4-10.4); Platelet Count 590 thou/uL (130-400); RBC Distribution Width 17.3 % (11.5-14.5); Red Blood Cell (RBC) Count 3.55 mill/uL (4.70-6.10); White Blood Cell (WBC) Count 10.2 thou/uL (4.8-10.8)
[2021-09-11 10:04] LABS: Anisocytosis MODERATE=16-30 cells (100X) (0-5/hpf); Band 3 % (5-11); Eosinophils 3 % (0-10); Hypochromia SLIGHT = 6-15 cells (100X) (0-5/hpf); Lymphocytes 16 % (21-51); MDiff Complete? YES; Monocytes 6 % (0-10); Myelocyte 1 % (0-0); Neutrophil 69 % (42-75); Platelet Morphology Comment Appears Increased; Polychromasia SLIGHT = 2-3 cells (100X) (0-2/hpf); Reactive Lymphocytes 1 % (0-10); Target Cells SLIGHT = 2-5 cells (100X) (0-1/hpf)
[2021-09-11 12:23] LABS: Anion Gap 17 mmol/L (10-20); BUN (Urea Nitrogen) 10 mg/dL (8.9-20.6); Calc. Creatinine Clearance 209 mL/min (70-130); Carbon Dioxide 18 mmol/L (22-29); Chloride 105 mmol/L (98-107); Glucose 75 mg/dL (70-105); Potassium 4.2 mmol/L (3.5-5.1); Sodium 136 mmol/L (136-145)
[2021-09-12] MEDS ORDERED: Apixaban 5 MG TAB PO SCH (21:00)
[2021-09-13 15:14] LABS: Renin Activity 2.467 ng/mL/hr (0.167-5.380)
== END 2021-09-11 15:10 | disposition home or self-care (01) | DRG 870 ==
LOC: ERS 13:13 → T4-B 16:34 → IMCU/EMU 08-19 15:54 → CCU 08-20 11:56 → IMCU/EMU 08-28 13:26 → T4-B 08-30 18:41
PROVIDERS: ADMIT Family Medicine; ATTEND Family Medicine
PROC: 30233N1 Transfusion of Nonautologous Red Blood Cells into Peripheral Vein, Percutaneous Approach (ICD-10-PCS; 2021-08-18)
PROC: 5A1955Z Respiratory Ventilation, Greater than 96 Consecutive Hours (ICD-10-PCS; principal; 2021-08-20)
PROC: 0BH18EZ Insertion of Endotracheal Airway into Trachea, Via Natural or Artificial Opening Endoscopic (ICD-10-PCS; 2021-08-20)
PROC: 0D9670Z Drainage of Stomach with Drainage Device, Via Natural or Artificial Opening (ICD-10-PCS; 2021-08-20)
PROC: 0B9F8ZX Drainage of Right Lower Lung Lobe, Via Natural or Artificial Opening Endoscopic, Diagnostic (ICD-10-PCS; 2021-08-23)
PROC: 0B9D8ZX Drainage of Right Middle Lung Lobe, Via Natural or Artificial Opening Endoscopic, Diagnostic (ICD-10-PCS; 2021-08-23)
DX: A41.9 Sepsis, unspecified organism (principal); I26.99 Other pulmonary embolism without acute cor pulmonale; J85.1 Abscess of lung with pneumonia; J80 Acute respiratory distress syndrome; D57.411 Sickle-cell thalassemia, unspecified, with acute chest syndrome; J93.9 Pneumothorax, unspecified; E87.0 Hyperosmolality and hypernatremia; K81.0 Acute cholecystitis; Z68.41 Body mass index [BMI] 40.0-44.9, adult; I10 Essential (primary) hypertension; Z20.822 Contact with and (suspected) exposure to COVID-19; E66.01 Morbid (severe) obesity due to excess calories; D73.5 Infarction of spleen; E87.70 Fluid overload, unspecified; R04.0 Epistaxis; R16.1 Splenomegaly, not elsewhere classified; D69.6 Thrombocytopenia, unspecified; E87.6 Hypokalemia; Z90.49 Acquired absence of other specified parts of digestive tract; Z83.2 Family history of diseases of the blood and blood-forming organs and certain disorders involving the immune mechanism; Z78.1 Physical restraint status
CPT/HCPCS: 36415; 36430; 36600; 70551; 71045; 71275; 76705; 80048; 80053; 80074; 80076; 80202; 82088; 82533; 82570; 82728; 82805; 83010; 83021; 83520; 83540; 83550; 83605; 83615; 83735; 83880; 84100; 84133; 84145; 84244; 84478; 85007; 85025; 85027; 85046; 85060; 85245; 85379; 85384; 85610; 85652; 85730; 86038; 86140; 86160; 86200; 86225; 86256; 86769; 86850; 86880; 86900; 86901; 87040; 87070; 87102; 87116; 87205; 87206; 87389; 87449; 87798; 87899; 88112; 88305; 89051; 93005; 93010; 93306; 93970; 94002; 94003; 94640; 99285; J0360; J0456; J0696; J1650; J1940; J2060; J2185; J2250; J2270; J2704; J2920; J3010; J3370; J3480; J3490; J7050; J7070; J7120; J7620; P9016; Q9967; S0028; U0003; U0005

== ENCOUNTER 2022-10-22 22:58 | Inpatient (IN) | payer SELFPAY ==
[2022-10-22] MEDS ORDERED: Piperacillin/Tazobactam 3.375 GM VIAL ONE (23:48)
[2022-10-22] MEDS ORDERED: Acetaminophen 500 MG TAB ONE (23:48)
[2022-10-22] MEDS ORDERED: Vancomycin 1 GM/200 ML (FROZEN) BAG ONE (23:48)
[2022-10-23 00:05] LABS: Hemoglobin 3.9 g/dL (14.0-18.0); Red Blood Cell (RBC) Count 1.16 mill/uL (4.70-6.10)
[2022-10-23 00:12] LABS: ALT (SGPT) 49 U/L (8-55); AST (SGOT) 133 U/L (5-34); Albumin 3.9 g/dL (3.5-5.0); Alkaline Phosphatase 68 U/L (40-110); Anion Gap 19 mmol/L (10-20); BUN (Urea Nitrogen) 29 mg/dL (8.9-20.6); Bilirubin, Total 2.9 mg/dL (0.2-1.2); Calc. Creatinine Clearance 0 mL/min (70-130); Calcium 9.6 mg/dL (7.8-10.44); Carbon Dioxide 15 mmol/L (22-29); Chloride 104 mmol/L (98-107); Estimated GFR 47; Globulin 3.5 g/dL (2.4-3.5); Glucose 75 mg/dL (70-105); Potassium 5.1 mmol/L (3.5-5.1); Protein, Total 7.4 g/dL (6.0-8.3); Sodium 133 mmol/L (136-145)
[2022-10-23 00:37] LABS: CKMB 11.9 ng/mL (0-6.6)
[2022-10-23 00:40] LABS: Band 1 % (5-11); Basophilic Stippling SLIGHT = 1-2 cells (100X) (None Seen); Large Platelets SLIGHT; Lymphocytes 40 % (21-51); MDiff Complete? YES; Mean Corpuscular HGB CONC 31.8 g/dL (32.0-36.0); Mean Corpuscular Hemoglobin 33.6 pg (27.0-31.0); Mean Platelet Volume 13.8 fL (7.4-10.4); Metamyelocyte 1 % (0-0); Monocytes 3 % (0-10); Myelocyte 1 % (0-0); Neutrophil 53 % (42-75); Nucleated RBC 257 % (0); Platelet Count 96 10x3/uL (130-400); Platelet Morphology Comment Appears Decreased; Polychromasia SLIGHT = 2-3 cells (100X) (0-2/hpf); Reactive Lymphocytes 1 % (0-10); Reflex for Review?? NO; Schistocytes SLIGHT = 2-5 cells (100X) (0-1/hpf); Sickle Cells SLIGHT = 1-5 cells (100X) (None Seen); Tear Drops SLIGHT = 2-5 cells (100X) (0-1/hpf)
[2022-10-23] MEDS ORDERED: Communication Order-Pharmacy FS ONE (01:07)
[2022-10-23] MEDS ORDERED: Ondansetron PF 4 MG/2 ML Vial IVP PRN (01:10)
[2022-10-23] MEDS ORDERED: Ondansetron ODT 4 MG TAB PO PRN (01:10)
[2022-10-23 01:32] LABS: Troponin I 2.269 ng/mL (< 0.028)
[2022-10-23 03:30] LABS: SARS-CoV-2 NAA Rapid Test Not Detected (NotDetected)
[2022-10-23 03:48] VITALS: BMI 34.0
[2022-10-23] MEDS ORDERED: Vancomycin 1 GM in Premix Bag 1 BAG IVPB SCH (04:15)
[2022-10-23 04:38] LABS: Critical Call Chem Troponin I RESULT DECREASING; Troponin I 2.244 ng/mL (< 0.028)
[2022-10-23] MEDS: Cefepime 2 GM in Sodium Chloride 0.9% 100 ML IVPB SCH ×2 (06:32→17:21)
[2022-10-23] MEDS: Famotidine 20 MG TAB PO SCH ×2 (08:51→20:42)
[2022-10-23] MEDS: NIFEdipine XL 60 MG TAB PO SCH ×2 (08:52→20:43)
[2022-10-23] MEDS: Acetaminophen 325 MG TAB PO PRN (08:53)
[2022-10-23] MEDS ORDERED: Vancomycin HCl 1.5 GM in Sodium Chloride 0.9% 250 ML 300 ML IVPB SCH (09:00)
[2022-10-23] MEDS ORDERED: Lisinopril 20 MG TAB PO SCH (09:00)
[2022-10-23] MEDS ORDERED: Iopamidol-370 76% 500 ML 1 ML ONE (10:50)
[2022-10-23 15:19] LABS: Reticulocyte Count 6.7 % (0.5-1.5)
[2022-10-23 15:27] LABS: Hemoglobin 6.3 g/dL (14.0-18.0); Mean Corpuscular HGB CONC 33.3 g/dL (32.0-36.0); Mean Corpuscular Volume 98.9 fl (78.0-98.0); Mean Platelet Volume 13.5 fL (7.4-10.4); Platelet Count 83 10x3/uL (130-400); RBC Distribution Width 29.8 % (11.5-14.5); Red Blood Cell (RBC) Count 1.91 mill/uL (4.70-6.10)
[2022-10-23 15:35] LABS: Anion Gap 15 mmol/L (10-20); BUN (Urea Nitrogen) 27 mg/dL (8.9-20.6); Calc. Creatinine Clearance 91 mL/min (70-130); Calcium 9.1 mg/dL (7.8-10.44); Carbon Dioxide 18 mmol/L (22-29); Chloride 106 mmol/L (98-107); Estimated GFR 55; Glucose 130 mg/dL (70-105); Potassium 4.5 mmol/L (3.5-5.1); Sodium 134 mmol/L (136-145)
[2022-10-23 15:38] LABS: Amphetamine Not Detected (NotDetected); Barbiturates Screen Not Detected (NotDetected); Benzodiazepine Screen Not Detected (NotDetected); Cocaine Metabolite Screen Not Detected (NotDetected); Methadone Not Detected (NotDetected); Methamphetamine Not Detected (NotDetected); Opiate Screen Not Detected (NotDetected); Oxycodone Screen Not Detected (NotDetected); Phencyclidine (PCP) Not Detected (NotDetected); THC/Cannabinoid Screen Not Detected (NotDetected); Tricyclic Screen Not Detected (NotDetected)
[2022-10-23 15:47] LABS: Troponin I 0.912 ng/mL (< 0.028)
[2022-10-23 16:02] LABS: Anisocytosis MODERATE=16-30 cells (100X) (0-5/hpf); Band 1 % (5-11); Basophilic Stippling SLIGHT = 1-2 cells (100X) (None Seen); Eosinophils 2 % (0-10); Howell Jolly Bodies MODERATE = 3-5 cells (100X) (None Seen); Lymphocytes 22 % (21-51); MDiff Complete? YES; Macrocytosis MODERATE=16-30 cells (100X) (0-5/hpf); Microcytosis SLIGHT = 6-15 cells (100X) (0-5/hpf); Monocytes 2 % (0-10); Neutrophil 72 % (42-75); Nucleated RBC 208 % (0); Ovalocytes SLIGHT = 2-5 cells (100X) (0-1/hpf); Platelet Morphology Comment Appears Decreased; Poikilocytosis MODERATE=16-30 cells (100X) (0-5/hpf); Polychromasia MODERATE = 3-4 cells (100X) (0-2/hpf); Reactive Lymphocytes 1 % (0-10); Schistocytes SLIGHT = 2-5 cells (100X) (0-1/hpf); Sickle Cells SLIGHT = 1-5 cells (100X) (None Seen); Spherocytes SLIGHT = 1-5 cells (100X) (None Seen); Target Cells MODERATE= 6-15 cells (100X) (0-1/hpf); White Blood Cell (WBC) Count 3.8 10x3/uL (4.8-10.8)
[2022-10-23] MEDS: Sodium Chloride 0.9% 1,000 ML IV SCH (16:24)
[2022-10-23] MEDS ORDERED: Furosemide 20 MG/2 ML VIAL SLOW IVP PRN (17:48)
[2022-10-24] MEDS: Acetaminophen 325 MG TAB PO PRN (01:37)
[2022-10-24] MEDS ORDERED: VANCOMYCIN 2 GRAM/500 ML BAG 2 GM in Premix Bag 1 BAG IVPB SCH (02:00)
[2022-10-24 04:39] LABS: Anion Gap 13 mmol/L (10-20); BUN (Urea Nitrogen) 19 mg/dL (8.9-20.6); Calc. Creatinine Clearance 142 mL/min (70-130); Calcium 8.7 mg/dL (7.8-10.44); Carbon Dioxide 19 mmol/L (22-29); Chloride 108 mmol/L (98-107); Estimated GFR 93; Glucose 79 mg/dL (70-105); Potassium 4.4 mmol/L (3.5-5.1); Sodium 136 mmol/L (136-145)
[2022-10-24 04:53] LABS: Hemoglobin 7.4 g/dL (14.0-18.0); Hypochromia SLIGHT = 6-15 cells (100X) (0-5/hpf); Lymphocytes 22 % (21-51); MDiff Complete? YES; Mean Corpuscular HGB CONC 33.2 g/dL (32.0-36.0); Mean Corpuscular Hemoglobin 32.4 pg (27.0-31.0); Mean Corpuscular Volume 97.4 fl (78.0-98.0); Mean Platelet Volume 11.1 fL (7.4-10.4); Monocytes 4 % (0-10); Neutrophil 74 % (42-75); Nucleated RBC 125 % (0); Platelet Count 81 10x3/uL (130-400); Platelet Morphology Comment Appears Decreased; Polychromasia SLIGHT = 2-3 cells (100X) (0-2/hpf); RBC Distribution Width 28.8 % (11.5-14.5); Red Blood Cell (RBC) Count 2.28 mill/uL (4.70-6.10); Target Cells MODERATE= 6-15 cells (100X) (0-1/hpf); White Blood Cell (WBC) Count 4.8 10x3/uL (4.8-10.8)
[2022-10-24] MEDS: Cefepime 2 GM in Sodium Chloride 0.9% 100 ML IVPB SCH ×2 (05:24→18:42)
[2022-10-24] MEDS: Sodium Chloride 0.9% 1,000 ML IV SCH ×2 (05:24→18:42)
[2022-10-24] MEDS: Cyanocobalamin (Vitamin B-12) 1,000 MCG TAB PO SCH (08:20)
[2022-10-24] MEDS: Folic Acid 1 MG TAB PO SCH (08:20)
[2022-10-24] MEDS: Famotidine 20 MG TAB PO SCH ×2 (08:20→21:49)
[2022-10-24] MEDS: NIFEdipine XL 60 MG TAB PO SCH ×2 (08:20→21:49)
[2022-10-24 14:09] LABS: Platelet Count 79 10x3/uL (130-400)
[2022-10-24 14:15] LABS: INR-International Normal Ratio 1.2; Prothrombin Time 15.7 sec (12.0-14.7)
[2022-10-24 14:16] LABS: Fibrinogen 250 mg/dL (253-463); PTT 38.7 sec (22.9-36.1)
[2022-10-24 14:26] LABS: D-Dimer Test 19.12 *mcg/mL (0.27-0.43)
[2022-10-24 14:31] LABS: ALT (SGPT) 45 U/L (8-55); AST (SGOT) 139 U/L (5-34); Albumin 3.9 g/dL (3.5-5.0); Alkaline Phosphatase 60 U/L (40-110); Anion Gap 15 mmol/L (10-20); BUN (Urea Nitrogen) 15 mg/dL (8.9-20.6); Bilirubin, Total 2.9 mg/dL (0.2-1.2); Calc. Creatinine Clearance 162 mL/min (70-130); Calcium 8.8 mg/dL (7.8-10.44); Carbon Dioxide 18 mmol/L (22-29); Chloride 107 mmol/L (98-107); Estimated GFR 109; Globulin 3.5 g/dL (2.4-3.5); Glucose 95 mg/dL (70-105); Potassium 4.2 mmol/L (3.5-5.1); Protein, Total 7.4 g/dL (6.0-8.3); Sodium 136 mmol/L (136-145)
[2022-10-25] MEDS: Sodium Chloride 0.9% 1,000 ML IV SCH ×3 (00:10→13:37)
[2022-10-25] MEDS: Cefepime 2 GM in Sodium Chloride 0.9% 100 ML IVPB SCH ×2 (04:32→16:59)
[2022-10-25 05:52] LABS: ALT (SGPT) 43 U/L (8-55); AST (SGOT) 113 U/L (5-34); Albumin 3.8 g/dL (3.5-5.0); Alkaline Phosphatase 55 U/L (40-110); Anion Gap 11 mmol/L (10-20); BUN (Urea Nitrogen) 11 mg/dL (8.9-20.6); Bilirubin, Total 2.8 mg/dL (0.2-1.2); Calc. Creatinine Clearance 186 mL/min (70-130); Calcium 8.8 mg/dL (7.8-10.44); Carbon Dioxide 20 mmol/L (22-29); Chloride 107 mmol/L (98-107); Estimated GFR 117; Globulin 3.3 g/dL (2.4-3.5); Glucose 79 mg/dL (70-105); Potassium 4.1 mmol/L (3.5-5.1); Protein, Total 7.1 g/dL (6.0-8.3); Sodium 134 mmol/L (136-145)
[2022-10-25 06:08] LABS: Band 4 % (5-11); Eosinophils 2 % (0-10); Hemoglobin 7.6 g/dL (14.0-18.0); Hypochromia SLIGHT = 6-15 cells (100X) (0-5/hpf); Lymphocytes 66 % (21-51); MDiff Complete? YES; Mean Corpuscular HGB CONC 32.9 g/dL (32.0-36.0); Mean Corpuscular Hemoglobin 32.5 pg (27.0-31.0); Mean Corpuscular Volume 98.9 fl (78.0-98.0); Neutrophil 28 % (42-75); Nucleated RBC 58 % (0); Platelet Count 80 10x3/uL (130-400); Platelet Morphology Comment Appears Decreased; Polychromasia SLIGHT = 2-3 cells (100X) (0-2/hpf); RBC Distribution Width 28.3 % (11.5-14.5); Red Blood Cell (RBC) Count 2.34 mill/uL (4.70-6.10); Target Cells MODERATE= 6-15 cells (100X) (0-1/hpf); White Blood Cell (WBC) Count 5.9 10x3/uL (4.8-10.8)
[2022-10-25] MEDS: NIFEdipine XL 60 MG TAB PO SCH (09:20)
[2022-10-25] MEDS: Cyanocobalamin (Vitamin B-12) 1,000 MCG TAB PO SCH (09:21)
[2022-10-25] MEDS: Famotidine 20 MG TAB PO SCH ×2 (09:21→20:53)
[2022-10-25] MEDS: Folic Acid 1 MG TAB PO SCH (09:21)
[2022-10-26] MEDS: Cefepime 2 GM in Sodium Chloride 0.9% 100 ML IVPB SCH ×2 (04:24→16:13)
[2022-10-26 06:48] LABS: ALT (SGPT) 50 U/L (8-55); AST (SGOT) 105 U/L (5-34); Albumin 4.1 g/dL (3.5-5.0); Alkaline Phosphatase 57 U/L (40-110); Anion Gap 9 mmol/L (10-20); BUN (Urea Nitrogen) 9 mg/dL (8.9-20.6); Bilirubin, Total 2.7 mg/dL (0.2-1.2); Calc. Creatinine Clearance 204 mL/min (70-130); Carbon Dioxide 22 mmol/L (22-29); Chloride 105 mmol/L (98-107); Estimated GFR 120; Globulin 3.5 g/dL (2.4-3.5); Glucose 78 mg/dL (70-105); Potassium 4.2 mmol/L (3.5-5.1); Protein, Total 7.6 g/dL (6.0-8.3); Sodium 132 mmol/L (136-145)
[2022-10-26 07:43] LABS: Hemoglobin 8.1 g/dL (14.0-18.0); Mean Corpuscular HGB CONC 32.2 g/dL (32.0-36.0); Mean Corpuscular Hemoglobin 31.8 pg (27.0-31.0); Mean Corpuscular Volume 98.6 fl (78.0-98.0); Mean Platelet Volume 12.1 fL (7.4-10.4); Platelet Count 69 10x3/uL (130-400); RBC Distribution Width 27.3 % (11.5-14.5); Red Blood Cell (RBC) Count 2.56 mill/uL (4.70-6.10); White Blood Cell (WBC) Count 6.4 10x3/uL (4.8-10.8)
[2022-10-26] MEDS: Folic Acid 1 MG TAB PO SCH (08:40)
[2022-10-26] MEDS: Sodium Chloride 0.9% 1,000 ML IV SCH (08:40)
[2022-10-26] MEDS: Famotidine 20 MG TAB PO SCH ×2 (08:40→19:59)
[2022-10-26] MEDS: Cyanocobalamin (Vitamin B-12) 1,000 MCG TAB PO SCH (08:40)
[2022-10-26 09:14] LABS: Reticulocyte Count 36.2 % (0.5-1.5)
[2022-10-26 09:17] LABS: Band 1 % (5-11); Eosinophils 2 % (0-10); Hypochromia SLIGHT = 6-15 cells (100X) (0-5/hpf); Lymphocytes 42 % (21-51); MDiff Complete? YES; Monocytes 2 % (0-10); Neutrophil 50 % (42-75); Nucleated RBC 135 % (0); Platelet Morphology Comment Appears Decreased; Polychromasia SLIGHT = 2-3 cells (100X) (0-2/hpf); Reactive Lymphocytes 3 % (0-10); Target Cells SLIGHT = 2-5 cells (100X) (0-1/hpf)
[2022-10-27 00:29] VITALS: BP 127/83; TEMP 98.4
[2022-10-27] MEDS: Sodium Chloride 0.9% 1,000 ML IV SCH (01:11)
== END 2022-10-27 01:00 | disposition short-term general hospital (02) | DRG 871 ==
LOC: ERS 22:58 → CCU 10-23 00:11 → T4-A 10-24 17:43
PROVIDERS: ADMIT Student in an Organized Health Care Education/Training Program; ATTEND Internal Medicine
PROC: 30233N1 Transfusion of Nonautologous Red Blood Cells into Peripheral Vein, Percutaneous Approach (ICD-10-PCS; principal; 2022-10-23)
PROC: 3E03329 Introduction of Other Anti-infective into Peripheral Vein, Percutaneous Approach (ICD-10-PCS; 2022-10-23)
DX: A41.9 Sepsis, unspecified organism (principal); D57.419 Sickle-cell thalassemia, unspecified, with crisis; I21.A1 Myocardial infarction type 2; J18.9 Pneumonia, unspecified organism; N17.9 Acute kidney failure, unspecified; I10 Essential (primary) hypertension; E80.6 Other disorders of bilirubin metabolism; D51.9 Vitamin B12 deficiency anemia, unspecified; Z90.49 Acquired absence of other specified parts of digestive tract; Z88.7 Allergy status to serum and vaccine; Z79.899 Other long term (current) drug therapy; Z79.51 Long term (current) use of inhaled steroids; Z79.01 Long term (current) use of anticoagulants
CPT/HCPCS: 36415; 36430; 71275; 80048; 80053; 80306; 82553; 82607; 83010; 83021; 83605; 83615; 83880; 84484; 85025; 85046; 85049; 85300; 85362; 85379; 85384; 85610; 85730; 86850; 86880; 86900; 86901; 86922; 87040; 87081; 93005; 93306; 94760; 96365; 96367; J0692; J1650; J2543; J3370; J3370-JW; J3490; J7050; P9016; Q9967; U0002